=== PATIENT | female | born 1925 | race Caucasian/White ===

== ENCOUNTER 2016-12-11 15:05 | Inpatient (IN) | payer BC, MEDICARE ==
[~2016-12-11] VITALS: Ht 154.9 cm; Wt 56.2 kg
[~2016-12-11 15:05] MED LIST: ASPI-1114 PO; ATOR10TA PO; BIOT25008 PO; CA C1TAB15 PO; CALC750T4 PO; ESOM20CA PO; MELO-267 PO; MULT-1175 PO; POLY30DR BOTH EYES; SERT50TA12 PO; SUCR1TAB20 PO
--- OUTSIDE RECORDS SUMMARY | 2016-12-11 15:16 | XMS REPORT | Referral Summary ---
Author Author [facility], [facility] Organization [facility] Address Unknown Phone Unavailable Care Team Providers Care Mash Filter Cloth Changer Name Role Phone Norma Vasquez Primary Care Physician [phone] Encounter VC Date(s): 02/14/15 - 02/14/15 [facility] [address] [place] [address]- Discharge Diagnosis: Gastroesophageal reflux disease Discharge Diagnosis: Hiatal hernia Discharge Diagnosis: CAD (coronary artery disease) Discharge Diagnosis: Pulmonary nodules Discharge Disposition: 01-Home or Self Care Attending Physician: Hillary Srivastava APRN Admitting Physician: Hillary Srivastava APRN Vital Signs Most recent to 1 oldest [Reference Range]: Temperature Tympanic 36.5 degC [36.6-38.1 degC] *LOW* (02/14/15 3:43 PM) Peripheral Pulse 60 bpm Rate [60-100 bpm] (02/14/15 3:43 PM) Blood Pressure 112/58 mmHg [90-140/60-90 mmHg] (02/14/15 3:43 PM) Problem List Condition Effective Dates Status Health Status Informant 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) Unspecified 2001 Active cataract(Confirmed) Constipation Active (disorder)(Confirmed ) Generalized Active osteoarthritis (disorder)(Confirmed ) Depressive disorder, Active not elsewhere classified(Confirmed ) Dyslipidemia(Confirm Active ed) 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) Female urinary Active stress incontinence (finding)(Confirmed) Gastroesophageal Active reflux disease (disorder)(Confirmed ) Hiatal Active hernia(Confirmed) Prediabetes(Confirme Active d) Other specified iron Active deficiency anemias(Confirmed) Pulmonary Active nodules(Confirmed) Osteoporosis spec Active sites(Confirmed) 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) Anterior right Active rotator cuff tendonitis(Confirmed ) Hepatic Active steatosis(Confirmed) Anterior right Active rotator cuff strain(Confirmed)1 Traumatic Resolved arthropathy of the shoulder region (disorder)(Confirmed ) Varicella without Resolved complication(Confirm ed) Vitamin D Active deficiency(Confirmed ) 1injected 10/25/10; 12/14/10 Allergies, Adverse Reactions, Alerts No Known Allergies Medications biotin 5,000 mcg, Oral, Daily, take 1 tab, 0 Refill(s) Start Date: 10/22/14 Status: Ordered Carafate 1 g oral tablet 1 g 1 tabs, Oral, QIDACHS, # 360 tabs, 3 Refill(s), Pharmacy: [facility] # [id number], 1 tabs Oral QIDACHS Start Date: 05/09/15 Status: Ordered Citracal Regular 250 mg-200 intl units oral tablet 1 tabs, Oral, Daily, 0 Refill(s) Start Date: 10/22/14 Status: Ordered Lipitor 10 mg oral tablet 10 mg 1 tabs, Oral, Daily, # 90 tabs, 0 Refill(s), Pharmacy: [facility] # [id number], 1 tabs Oral Daily Start Date: 06/22/15 Status: Ordered multivitamin Daily, 0 Refill(s) Start Date: 02/02/15 Status: Ordered NexIUM 40 mg oral delayed release capsule 40 mg 1 caps, Oral, Daily, Run as name brand for her insurance, # 30 caps, 2 Refill(s), Pharmacy: [facility] #[id number], 1 caps Oral Daily,Instr:Run as name brand for her insurance Start Date: 05/19/15 Status: Ordered Zoloft 50 mg oral tablet 25 mg 0.5 tabs, Oral, Daily, # 90 tabs, 2 Refill(s), Pharmacy: [facility] #[id number], 0.5 tabs Oral Daily Start Date: 06/22/15 Status: Ordered Results No data available for this section Immunizations Vaccine Date Refusal Reason tetanus/diphth/pertuss (Tdap) adult/adol 05/12/13 influenza virus vaccine, inactivated 06/22/15 influenza virus vaccine, inactivated 06/30/14 influenza virus vaccine, live 07/14/12 influenza virus vaccine, live 08/19/08 pneumococcal 13-valent conjugate vaccine 06/22/15 pneumococcal 13-valent conjugate vaccine 11/05/14 pneumococcal 23-polyvalent vaccine 07/04/05 Procedures Procedure Date Related Diagnosis Body Site 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 Avoid alcohol. Eats small meals. States sitting up at least 30 minutes after meals. Ordered: Office Visit Level 4 Est 55164 2.CAD (coronary artery disease) Discussed CT findings with patient. Recommend referral to cardiology for further evaluation. Discussed with patient if she has severe pain again would recommend she return to the ER as it is unable to be differentiated whether this esophageal spasms versus heart attack Ordered: Office Visit Level 4 Est 86962 3.Pulmonary nodules Right middle lobe nodule. Recommend repeat CT scan without contrast in 6 months. Ordered: Office Visit Level 4 Est 41835 Gastroesophageal reflux disease Increase Nexium to 20 mg twice a day. Add Carafate 15 m 4 times a day 30 minutes before meals and at bedtime.Refer to surgeon for discussion regarding EGD. Ordered: Office Visit Level 4 Est 48619 Orders: sucralfate, 1 g 10 mL, Oral, QIDACHS, # 1,200 mL, 0 Refill(s), Pharmacy: [id number], 10 mL Oral QIDACHS Addendum Plan follow-up in 2 weeks. Sooner if problems arise.. by Hillary Srivastava PARTS ROOM ASSOCIATE on February 14, 2015 16:13:07 CDT
--- OUTSIDE RECORDS SUMMARY | 2016-12-11 15:16 | XMS REPORT | Referral Summary ---
Author Author [facility], [facility] Medicine Organization [facility] Address Unknown Phone Unavailable Care Team Providers Care Astronomy Professor Name Role Phone Norma Vasquez Primary Care Physician [phone] Encounter VC Date(s): 02/02/15 - 02/02/15 [facility] [address] [place] [address]- Discharge Diagnosis: Gastroesophageal reflux disease Discharge Diagnosis: Abnormal TSH Discharge Disposition: 01-Home or Self Care Attending Physician: Hillary Srivastava APRN Admitting Physician: Hillary Srivastava APRN Vital Signs Most recent to 1 oldest [Reference Range]: Temperature Tympanic 36.4 degC [36.6-38.1 degC] *LOW* (02/02/15 11:29 AM) Peripheral Pulse 72 bpm Rate [60-100 bpm] (02/02/15 11:29 AM) Blood Pressure 120/66 mmHg [90-140/60-90 mmHg] (02/02/15 11:29 AM) Problem List Condition Effective Dates Status Health [...] QIDACHS, # 360 tabs, 3 Refill(s), Pharmacy: [facility] # [id number], 1 tabs Oral QIDACHS Start Date: 05/09/15 Status: Ordered Citracal Regular 250 mg-200 intl units oral tablet 1 tabs, Oral, Daily, 0 Refill(s) Start Date: 10/22/14 Status: Ordered Lipitor 10 mg oral tablet 10 mg 1 tabs, Oral, Daily, # 90 tabs, 0 Refill(s), Pharmacy: [facility] # [id number], 1 tabs Oral Daily Start Date: 06/22/15 Status: Ordered multivitamin Daily, 0 Refill(s) Start Date: 02/02/15 Status: Ordered NexIUM 40 mg oral delayed release capsule 40 mg 1 caps, Oral, Daily, Run as name brand for her insurance, # 30 caps, 2 Refill(s), Pharmacy: [facility] #[id number], 1 caps Oral Daily,Instr:Run as name brand for her insurance Start Date: 05/19/15 Status: Ordered Zoloft 50 mg oral tablet 25 mg 0.5 tabs, Oral, Daily, # 90 tabs, 2 Refill(s), Pharmacy: [facility] #[id number], 0.5 tabs Oral Daily Start Date: 06/22/15 Status: Ordered Results Chemistry Most recent to 1 oldest [Reference Range]: TSH with Reflex Free 1.27 T4 [0.35-4.94] (02/02/15 12:05 PM) Immunizations Vaccine Date Refusal Reason tetanus/diphth/pertuss (Tdap) [...] and Plan Extracted from: Title: Office Visit Note-ER f/u Author: Hillary Srivastava CHICLE GRINDER FEEDER Date: Assessment/Plan 1.Abnormal TSH Mahamed TSH. No S/s of hypo/hyper thyroidism. Ordered: Office Visit Level 3 Est 94763 TSH with Reflex Free T4 Gastroesophageal reflux disease Cont Nexium. EC baby ASA dly. Ordered: Office Visit Level 3 Est 12749
--- OUTSIDE RECORDS SUMMARY | 2016-12-11 15:16 | XMS REPORT | Continuity of Care Document ---
Author Author Makayla Comer [facility] Address [address] [place] [address] Phone Care Team Providers Care Automobile Body Worker Name Role Phone Layo Mcqueen PP Unavailable Payers Payer name Insurance type Covered democrat ID Authorization(s) Unknown Problems Condition Effective Dates (start - stop) Clinical Status Unspecified arthropathy involving shoulder region - *Symptomatic Fracture of fifth metatarsal bone - *Acute GERD - *Chronic Depression - *Chronic Osteoporosis - *Chronic GERD - Chronic Depression - Chronic Osteoporosis - Chronic Routine Medical Exam - Memory loss - *Worse Depression - *Chronic GERD - *Chronic Osteoporosis - *Chronic Osteoarthritis, Generalized - *Chronic Cramp of limb - Episodic Sciatica - *Acute Generalized osteoarthrosis, involving multiple sit - *Chronic Osteoarthrosis, unspecified whether generalized or localized, involving other specified sites - *Chronic GERD (gastroesophageal reflux disease) - *Chronic Leg cramps - Episodic Osteoporosis - *Chronic Depression - *Chronic Other specified iron deficiency anemias - *Controlled Osteoarthrosis, unspecified whether generalized or localized, involving other specified sites - *Controlled Other and unspecified hyperlipidemia - *Chronic Vitamin d deficiency - *Controlled Fracture of metatarsal bone(s), closed - *Worse Other and unspecified hyperlipidemia - *Chronic GERD - *Chronic Depression - *Chronic Osteoporosis - *Chronic Anemia - *Chronic Osteoarthritis, Generalized - *Chronic Osteoarthritis, Generalized - Chronic VARICELLA UNCOMPLICATED - IRON DEFIC ANEMIA NEC - 311 - DEPRESSIVE DISORDER NEC - CATARACT NOS - ESOPHAGEAL REFLUX - CONSTIPATION NOS - FEM STRESS INCONTINENCE - OSTEOARTHRO NOS-OTH SITE - OSTEOPOROSIS NOS - Urinary Tract Infection - *Acute Fracture of metatarsal bone(s), closed - Improved Unspecified ptosis of eyelid - *Chronic Pre-operative examination, unspecified - *Routine NEED FOR PROPHYLACTIC VACCINATION WITH COMBINED [id number] ( DTP) (DTAP) VACCINE - Unspecified arthropathy involving shoulder region - *Symptomatic Family History Family Member Diagnosis Age At Onset Status Sister (Unknown) Diabetes Yes Mother (Unknown) old age Yes Father (Unknown) Premature CAD Yes Social History Social History Element Description Quantity alcohol Allergies, Adverse Reactions, Alerts Substance Reaction Severity Status Unknown Medications Medication Instructions Dosage Effective Dates (start - stop) Status Citracal Regular 250 mg-200 unit tablet Take one daily - Active Take one daily - Active biotin-silicon [id number] 5,000 mcg-100 mg-50 mg tablet Take one daily - Active aspirin 81 mg chewable tablet chew 1 tablet (81MG) by oral route every day 81 MG - Active magnesium 250 mg tablet Take one daily - Active Zoloft 50 mg tablet Take 0.5 tablet by mouth at bedtime. - Active Mobic 15 mg tablet Take 1 tablet by mouth every day. - Active Reclast 5 mg/100 mL intravenous solution inject 5 Milligram by Intravenous route every year Last given 12/04/2013 0 - Active Nexium 20 mg capsule,delayed release Take 1 tablet by mouth every day. Nov - Active Immunizations Vaccine Date Status Comments Tdap (Boostrix r) completed flu (split) (3 yrs or older) completed - Completed reason: previously given pneumo (2 yrs or older) (PPV23) completed - Completed reason: previously given flu (split) (3 yrs or older) completed - Completed reason: previously given Results Test Name Date and Time Measure Units Reference Range Abnormal Flag Comments Unknown Vital Signs Date / Time: Height Weight Pulse Rate Blood Pressure Temperature /15:46:00 60.75 in 132.00 lbs 97.9 F Procedures Procedure Date Unknown Encounters Encounter Location Date Patient Visit [facility] Patient Visit [facility] Patient Visit [facility] Patient Visit [facility] Patient Visit [facility] Patient Visit [facility] Patient Visit [facility] Patient Visit [facility] Patient Visit [facility] Patient Visit [facility] Patient Visit [facility] Patient Visit [facility] Patient Visit [facility] Patient Visit [facility] Patient Visit [facility] Patient Visit [facility] Advance Directives Directive Effective Date Unknown
--- OUTSIDE RECORDS SUMMARY | 2016-12-11 15:16 | XMS REPORT | Referral Summary ---
Author Author [facility], [facility] Organization [facility] Address Unknown Phone Unavailable Care Team Providers Care Ingredient Scaler Helper Name Role Phone Manuelito Alexander Primary Care Physician [phone] Encounter VC Date(s): 12/28/15 - 12/28/15 [facility] [address] [place] [address]- Discharge Diagnosis: Gastroesophageal reflux disease Discharge Diagnosis: Dyslipidemia Discharge Diagnosis: Depressive disorder, not elsewhere classified Discharge Diagnosis: Generalized osteoarthritis (disorder) Discharge Disposition: 01-Home or Self Care Attending Physician: John Alexander MD Admitting Physician: John Alexander MD Vital Signs Most recent to 1 oldest [Reference Range]: Temperature Tympanic 36.5 degC [36.6-38.1 degC] *LOW* (12/28/15 1:37 PM) Peripheral Pulse 64 bpm Rate [60-100 bpm] (12/28/15 1:37 PM) Respiratory Rate 18 br/min [14-20 br/min] (12/28/15 1:37 PM) Blood Pressure 134/68 mmHg [90-140/60-90 mmHg] (12/28/15 1:37 PM) Problem List Condition Effective Dates Status Health Status Informant 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) Unspecified 2001 Active cataract(Confirmed) Constipation Resolved (disorder)(Confirmed ) 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) Female urinary Active stress incontinence (finding)(Confirmed) Gastroesophageal Active reflux disease (disorder)(Confirmed ) Hiatal Active hernia(Confirmed) Dyslipidemia(Confirm Active ed) Prediabetes(Confirme Active d) Other specified iron Active deficiency anemias(Confirmed) Pulmonary Active nodules(Confirmed) Depressive disorder, Active not elsewhere classified(Confirmed ) 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 CT due 08/2016 2injected 10/25/10; 12/14/10 Allergies, Adverse Reactions, Alerts No Known Allergies Medications biotin 5,000 mcg, Oral, Daily, take 1 tab, 0 Refill(s) Start Date: 10/22/14 Status: Ordered Carafate 1 g oral tablet 1 g 1 tabs, Oral, BID, # 180 tabs, 3 Refill(s), Pharmacy: [facility] # [id number], 1 tabs Oral BID Start Date: 10/10/15 Status: Ordered Lipitor 10 mg oral tablet 10 mg 1 tabs, Oral, Bedtime (once a day), # 90 tabs, 3 Refill(s), Pharmacy: [facility] #[id number], 1 tabs Oral Bedtime (once a day) Start Date: 10/10/15 Status: Ordered Mobic 15 mg oral tablet 15 mg 1 tabs, Oral, Daily, # 90 tabs, 3 Refill(s), Pharmacy: [facility] # [id number], 1 tabs Oral Daily Start Date: 10/10/15 Status: Ordered NexIUM 20 mg oral delayed release capsule 20 mg 1 caps, Oral, Daily, # 90 caps, 0 Refill(s), other reason (Rx) Start Date: 09/29/15 Status: Ordered Tylenol Extra Strength 500 mg, Oral, q6hr, as needed for pain, 0 Refill(s) Start Date: 09/29/15 Status: Ordered Zoloft 50 mg oral tablet 25 mg 0.5 tabs, Oral, Daily, X 90 days, # 45 tabs, 3 Refill(s), Pharmacy: [facility] #[id number], 0.5 tabs Oral Daily,x90 days Start Date: 10/10/15 Stop Date: 10/04/16 Status: Ordered Results No data available for this section Immunizations Vaccine Date Refusal Reason tetanus/diphth/pertuss (Tdap) adult/adol 05/12/13 influenza virus vaccine, inactivated 06/22/15 influenza virus vaccine, inactivated 06/30/14 influenza virus vaccine, live 07/14/12 influenza virus vaccine, live 08/19/08 pneumococcal 13-valent conjugate vaccine 06/22/15 pneumococcal 13-valent conjugate vaccine 11/05/14 pneumococcal 23-polyvalent vaccine 07/04/05 Procedures Procedure Date Related Diagnosis Body Site DEXA - Dual energy X-ray photon 11/10/14 absorptiometry 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 No desire to changeat this time. Six-month follow-up encouraged. Ordered: Office Visit Level 4 Est 45260 Dyslipidemia Recent laboratory studies reviewed cholesterol levels are reasonable. Liver and kidney function are stable. No change in current treatment plan recommended. Six-month follow-up. Ordered: Office Visit Level 4 Est 56806 Gastroesophageal reflux disease Chronic stable no change in current treatment recommended. Ordered: Office Visit Level 4 Est 66912 Generalized osteoarthritis (disorder) Chronic and stable no change in current treatment recommended. Ordered: Office Visit Level 4 Est 97512 She's planning on following up with Hillary. I encouraged her tofollow through with that plan. I suggested an every six-month follow-up will be reasonable. Certainly if she needs to be seen sooner she should callthe office and let us know.
--- OUTSIDE RECORDS SUMMARY | 2016-12-11 15:16 | XMS REPORT | Referral Summary ---
Author Author [facility], [facility] Organization [facility] Address Unknown Phone Unavailable Care Team Providers Care Suit Maker Name Role Phone Manuelito Alexander Primary Care Physician [phone] Encounter [facility] [id number] Date(s): 09/29/15 - 09/29/15 [facility] [address] [place] [address] [place] Discharge Diagnosis: Gastroesophageal reflux disease Discharge Diagnosis: Other specified iron deficiency anemias Discharge Diagnosis: Vitamin D deficiency Discharge Diagnosis: Hiatal hernia Discharge Diagnosis: Pulmonary nodules 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 Discharge Diagnosis: Dyslipidemia Discharge Diagnosis: Hepatic steatosis Discharge Diagnosis: Prediabetes Discharge Disposition: 01-Home or Self Care Attending Physician: Hillary Srivastava APRN Admitting Physician: Hillary Srivastava APRN Vital Signs Most recent to 1 oldest [Reference Range]: Temperature Tympanic 36.3 degC [36.6-38.1 degC] *LOW* (09/29/15 10:32 AM) Peripheral Pulse 76 bpm Rate [60-100 bpm] (09/29/15 10:32 AM) Blood Pressure 128/68 mmHg [90-140/60-90 mmHg] (09/29/15 10:32 AM) Problem List Condition Effective Dates Status [...] iron Active deficiency anemias(Confirmed) Pulmonary Active nodules(Confirmed) 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) Anterior right Active rotator cuff tendonitis(Confirmed ) Hepatic Active steatosis(Confirmed) Anterior right Active rotator cuff strain(Confirmed)1 Traumatic Resolved arthropathy of the shoulder region (disorder)(Confirmed ) Varicella without Resolved complication(Confirm ed) Vitamin D Active deficiency(Confirmed ) 1injected 10/25/10; 12/14/10 Allergies, Adverse Reactions, Alerts No Known Allergies Medications Aspir 81 81 mg, Oral, Daily, 0 Refill(s) Start Date: 09/29/15 Status: Ordered biotin 5,000 mcg, Oral, Daily, take 1 tab, 0 Refill(s) Start Date: 10/22/14 Status: Ordered calcium citrate 500 mg, Oral, Daily, 0 Refill(s) Start Date: 09/29/15 Status: Ordered Carafate 1 g oral tablet 1 g 1 tabs, Oral, BID, # 360 tabs, 3 Refill(s), Pharmacy: [facility] # [id number], 1 tabs Oral QIDACHS Start Date: 05/09/15 Status: Ordered Lipitor 10 mg oral tablet See Instructions, TAKE ONE TABLET BY MOUTH DAILY, # 90 tabs, eRx: [facility] #[id number], TAKE ONE TABLET BY MOUTH DAILY Start Date: 09/16/15 Status: Ordered Mobic 15 mg oral tablet See Instructions, TAKE ONE TABLET BY MOUTH EVERY DAY, # 90 tabs, 3 Refill(s), eRx: [facility] #[id number], TAKE ONE TABLET BY MOUTH EVERY DAY Start Date: 09/14/15 Status: Ordered Multiple Vitamins oral tablet, chewable 1 tabs, Chewed, Daily, # 100 tabs, 0 Refill(s) Start Date: 09/29/15 Status: Ordered NexIUM 20 mg oral delayed release capsule 20 mg 1 caps, Oral, Daily, # 90 caps, 0 Refill(s), other reason (Rx) Start Date: 09/29/15 Status: Ordered Tylenol Extra Strength 500 mg, Oral, q6hr, as needed for pain, 0 Refill(s) Start Date: 09/29/15 Status: Ordered Zoloft 50 mg oral tablet 25 mg 0.5 tabs, Oral, Daily, # 90 tabs, 2 Refill(s), Pharmacy: [facility] #[id number], 0.5 tabs Oral Daily Start Date: 06/22/15 [...] and Plan Extracted from: Title: Office Visit Note-CDM Author: Hillary Srivastava ICING MAKER Date: Assessment/Plan Degenerative joint disease involving multiple joints Continue meloxicam if needed. When she trysupplementing with Tylenol up to 3000 mg per day. Dyslipidemia Well controlled with theLipitor. Continue same. Plan to recheck lipids and chemistry in 3 months. CDM report card completed and reviewed with patient. Last labs reviewed with patient. Recommendations discussed. Copy provided. Follow-up in 3 months. Discussed PCP changes. She will continue to follow with me. We'll change PCP to Dr. Alexander. Ordered: Comprehensive Metabolic Panel Lipid Panel Office Visit Level 4 Est 93739 Gastroesophageal reflux disease Continue Nexium. Try decreasing Carafate to twice a day if possible. Ordered: Office Visit Level 4 Est 39641 Hepatic steatosis Continue statin. Ordered: Office Visit Level 4 Est 80260 Hiatal hernia Continue symptomatic care. Ordered: Office Visit Level 4 Est 86622 Other specified iron deficiency anemias Recheck CBC in 3 months. Ordered: CBC w/ Differential Prediabetes Recheck hemoglobin A1c in 3 months. Continue healthy eating and activity. Ordered: Albumin/Creatinine Ratio, Urine Hemoglobin A1c Pulmonary nodules CT without contrast schedule. We'll notify patient of results and any further interventions needed. Vitamin D deficiency Continue supplementation. Vitamin D level in 3 months. Ordered: Vitamin D 25 Hydroxy Level Orders: esomeprazole, 20 mg 1 caps, Oral, Daily, # 90 caps, 0 Refill(s), other reason (Rx) sucralfate, 1 g 1 tabs, Oral, BID, # 360 tabs, 3 Refill(s), Pharmacy: [facility] #[id number], [address] Thorax w/o Contrast
--- OUTSIDE RECORDS SUMMARY | 2016-12-11 15:16 | XMS REPORT | Continuity of Care Document ---
Author Author [facility] Organization [facility] Address Unknown Phone Unavailable Support Name Relationship Address Phone ANUM VEGA MD Caregiver [address] [place] [phone] EDDIE WITT MD Caregiver [address] [place] [address] SHAWN MADRIGAL Next Of Kin [address] [place], [place] [id number] Insurance Providers Payer Name Policy Number Subscriber Name Relationship Medicare [id number] Lori Salomon 20 Self Blue Cross Select Plan 65 [id number] Lori Salomon 20 Self Advance Directives Directive Response Recorded Date/Time Advanced Directives Type Living Will DPOA for Healthcare 01/03/15 2:00pm Problems Medical Problems Problem Onset Date Status GERD (gastroesophageal reflux disease) Unknown Active Medications Medication Dose Route Sig Days/Qty Instructions Order Date Discontinued Date Status Ca Citrate/Mgox/Vit D3/B6/Min 1 Tab PO DAILY 05/12/13 Active Esomeprazole Mag Trihydrate 20 Mg PO DAILY 05/12/13 Active Sertraline HCl 0.5 Tab PO BEDTIME 01/03/15 Active Atorvastatin Calcium 1 Tab PO BEDTIME 01/03/15 Active Esomeprazole Mag Trihydrate 1 Tab PO DAILY 01/03/15 Active Biotin Unknown Dose PO DAILY 01/03/15 Active Ranitidine HCl 1 Tab PO EVERY 12 HOURS PRN ACID REFLUX 10 Days Active Sucralfate 1 G PO BEFORE MEALS AND AT BEDTIME 10 Days Take 1 tablet, by mouth, 4 times a day (Before EACH meal and 01/03/15 Active Social History Social History Problem Response Recorded Date/Time Chewing Tobacco Status No 05/13/2013 7:38am Hx Substance Use No 01/03/2015 2:05pm Hx Alcohol Use Y 1-2X/WK PER H&P 01/03/2015 2:05pm Query Response Start Date Stop Date Smoking Status Never smoker Hospital Discharge Instructions No hospital discharge instructions. Plan of Care No plan of care. Functional Status Query Response Date Recorded Physical Hygiene Self January 03, 2015 2:05pm Disabilities None January 03, 2015 2:05pm Devices Used None January 03, 2015 2:05pm Dressing Self January 03, 2015 2:05pm Ambulation Self January 03, 2015 2:05pm Diet Self January 03, 2015 2:05pm Mental Status Alert Oriented January 03, 2015 3:08pm Disabilities None January 03, 2015 2:05pm Devices Used None January 03, 2015 2:05pm Physical Hygiene Self January 03, 2015 2:05pm Dressing Self January 03, 2015 2:05pm Ambulation Self January 03, 2015 2:05pm Diet Self January 03, 2015 2:05pm Allergies, Adverse Reactions, Alerts Allergen Type Severity Reaction Status Last Updated Oxycodone Adverse Reaction Unknown STRANGE DREAMS Active 01/03/15 Immunizations Name Given Type Hx Influenza Vaccination Y FALL 2011 Historical Hx Pneumococcal Vaccination Y UNKNOWN Historical Hx Influenza Vaccination Y FALL 2011 Historical Vital Signs Acute Vital Signs Vital Response Date/Time Temperature (Fahrenheit) 97.4 deg F (96.8 - 99.1) Temperature (Calculated Celsius) 36.33942 degrees C (36.0 - 37.3) Pulse Rate (adult) 59 bpm (60 - 100) Respiratory Rate 22 breaths/min (10 - 20) O2 Sat by Pulse Oximetry 97 % (90 - 100) Blood Pressure 152/76 mm Hg Height 5 ft 3 in Weight 154 lb Body Mass Index 27.0 kg/m^2 Results Test Source Date Result Interp. Ref. Range Comments Thyroid Stimulating Hormone (TSH) January 03, 2015 2:05pm 0.08 MIU/L L 0.47-4.68 EP-Czr-L-Type Natriuretic Peptide January 03, 2015 2:05pm 462 PG/ML H 0- 175 Rule in cut points: <50 years old=450; 50-75 years old=900; >75 years old=1800; When utilizing ProBNP rule-in cut points, adjustment for impaired renal function is typically not required. Magnesium Level January 03, 2015 2:05pm 2.3 MG/DL N 1.6-2.3 Activated Partial Thromboplast Time January 03, 2015 2:05pm 28.0 SEC N 24- 36 Alanine Aminotransferase (ALT/SGPT) January 03, 2015 2:05pm 18 U/L N 9-52 Albumin January 03, 2015 2:05pm 4.4 G/DL N 3.5-5.0 Albumin/Globulin Ratio January 03, 2015 2:05pm 1.5 RATIO N 1.1-2.2 Alkaline Phosphatase January 03, 2015 2:05pm 64 U/L N 38-126 Anion Gap January 03, 2015 2:05pm 11 MEQ/L N 5-15 Aspartate Amino Transf (AST/SGOT) January 03, 2015 2:05pm 24 U/L N 14-36 BUN/Creatinine Ratio January 03, 2015 2:05pm 16 RATIO N 6-26 Basophils # (Auto) January 03, 2015 2:05pm 0.0 T/MM3 N 0-0.2 Basophils (%) (Auto) January 03, 2015 2:05pm 0.0 % N 0-2 Blood Urea Nitrogen January 03, 2015 2:05pm 14.0 MG/DL N 7-17 Calcium Level January 03, 2015 2:05pm 9.8 MG/DL N 8.4-10.2 Calculated Osmolality January 03, 2015 2:05pm 275 MOSM/KG N 261-280 Carbon Dioxide Level January 03, 2015 2:05pm 28 MEQ/L N 22-30 Chemistry Specimen Hemolysis January 03, 2015 2:05pm < 15 0-25 0-25: No Hemolysis.26-70: Slight Hemolysis - can falsely elevate K and Urine Protein. 71-285: Moderate Hemolysis - can falsely elevate K, Troponin I, CA 19-9, PTH, CSF GLucose, and Urine Protein, and can falsely decrease Phenytoin. 286-999: Gross Hemolysis - can falsely elevate K, Troponin I, CA 19-9, PTH, CSF Glucose, and Urine Protine, and can falsely decrease Phenytoin. Recommend specimen recollection. Chloride Level January 03, 2015 2:05pm 103 MEQ/L N 98-107 Conjugated Bilirubin April 15, 2012 7:55pm 0.00 MG/DL N 0.00-0.30 Creatine Kinase MB January 29, 2011 4:39pm 3.7 NG/ML H 0-3.4 CALL TO Creatinine January 03, 2015 2:05pm 0.9 MG/DL N 0.7-1.2 Eosinophils # (Auto) January 03, 2015 2:05pm 0.0 T/MM3 N 0-0.5 Eosinophils (%) (Auto) January 03, 2015 2:05pm 0.0 % N 0-4 Globulin January 03, 2015 2:05pm 3.0 G/DL N 2.4-3.6 Glomerular Filtration Rate Calc January 03, 2015 2:05pm 59 - Glucose Level January 03, 2015 2:05pm 122 MG/DL H 65-110 Hematocrit January 03, 2015 2:05pm 39.3 % N 36-46 Hemoglobin January 03, 2015 2:05pm 13.0 GM/DL N 12-16 Icterus Index January 03, 2015 2:05pm < 2 0-7 Immature Granulocyte # (Auto) January 03, 2015 2:05pm 0.00 T/MM3 N 0.00- 0.03 Immature Granulocyte % (Auto) January 03, 2015 2:05pm 0.0 % N 0.0-0.5 Lab Scanned Report January 29, 2011 10:00pm LAB TEST FORM REQUEST [id number] - Lymphocytes # (Auto) January 03, 2015 2:05pm 2.3 T/MM3 N 1-4.8 Lymphocytes (%) (Auto) January 03, 2015 2:05pm 35.4 % N 23-45 Mean Corpuscular Hemoglobin January 03, 2015 2:05pm 30.2 UUG N 26-34 Mean Corpuscular Hemoglobin Concent January 03, 2015 2:05pm 33.1 GM/DL N 31-37 Mean Corpuscular Volume January 03, 2015 2:05pm 91.4 UM3 N 80-100 Mean Platelet Volume January 03, 2015 2:05pm 9.8 UM3 N 9.4-12.4 Monocytes # (Auto) January 03, 2015 2:05pm 0.4 T/MM3 N 0-0.8 Monocytes (%) (Auto) January 03, 2015 2:05pm 6.7 % N 0-9.0 Neutrophils # (Auto) January 03, 2015 2:05pm 3.8 T/MM3 N 1.8-7.7 Neutrophils (%) (Auto) January 03, 2015 2:05pm 57.9 % N 33-66 Platelet Count January 03, 2015 2:05pm 174 T/MM3 N 130-400 Potassium Level January 03, 2015 2:05pm 4.1 MEQ/L N 3.6-5 Prothromb Time International Ratio January 03, 2015 2:05pm 0.95 N 0.81- 1.09 THERAPUTIC RANGE=2.00-3.00 FOR ANTI-THROMBOSIS THERAPUTIC RANGE=2.50- 3.50 FOR IMPLANTED VALVE RDW Standard Deviation January 03, 2015 2:05pm 45.6 FL N 36.9-50.2 Red Blood Count January 03, 2015 2:05pm 4.30 M/MM3 N 4.00-5.20 Sodium Level January 03, 2015 2:05pm 142 MEQ/L N 134-144 Total Bilirubin January 03, 2015 2:05pm 0.40 MG/DL N 0.20-1.30 Total Protein January 03, 2015 2:05pm 7.4 G/DL N 6.3-8.2 Troponin I January 03, 2015 2:05pm < 0.012 ng/ml 0-0.12 Turbidity January 03, 2015 2:05pm < 20 0-20 Unconjugated Bilirubin April 15, 2012 7:55pm 0.00 MG/DL N 0.00-1.10 White Blood Count January 03, 2015 2:05pm 6.5 T/MM3 N 4.5-11.0 Name: LORI SALOMON Unit #: [id number] : [id number] Sex: F Loc / Svc: ED DOS: 01/03/15 Signed Report #: [id number] DIAGNOSTIC IMAGING REPORT TYPE OF EXAM: CHEST 1 VIEW Dictated By: ROCIO BENTLEY MD Indication: ITS.REASON: chest pain CHEST 1 VIEW: Comparison: April 15, 2012 Findings: Lungs are mildly hypoinflated. No pneumothorax or focal airspace consolidation. The heart size and mediastinal contours are stable. Large hiatal hernia with partially intrathoracic stomach. Pulmonary vascularity appears normal. Suture anchors in the right humeral head with degenerative changes in the glenohumeral joint. Impression: No acute cardiopulmonary disease. . Procedures No known history of procedures. Encounters Encounter Location Date/Time Departed Emergency Room [facility] 01/03/15 1:57pm Recent Diagnosis
--- OUTSIDE RECORDS SUMMARY | 2016-12-11 15:16 | XMS REPORT | Continuity of Care Document ---
Author Author Hillary Knapp [facility] Address [address] [place] [address] Via [facility] [place] [address] Phone Care Team Providers Care Cap And Hat Production Supervisor Name Role Phone Layo Mcqueen PP Unavailable Payers Payer name Insurance type Covered green party ID Authorization(s) Unknown Problems Condition Effective Dates (start - stop) Clinical Status Routine Medical Exam - Memory loss - *Worse Depression - *Chronic GERD - *Chronic Osteoporosis - *Chronic Osteoarthritis, Generalized - *Chronic Cramp of limb - Episodic Fracture of fifth metatarsal bone - *Acute GERD - *Chronic Depression - *Chronic Osteoporosis - *Chronic GERD - Chronic Depression - Chronic Osteoporosis - Chronic Sciatica - *Acute Generalized osteoarthrosis, involving multiple [...] - *Chronic Vitamin d deficiency - *Controlled Unspecified arthropathy involving shoulder region - *Symptomatic Fracture of metatarsal bone(s), closed - *Worse [...] *Routine NEED FOR PROPHYLACTIC VACCINATION WITH COMBINED [id number] ( DTP) (DTAP) VACCINE - Family History Family Member Diagnosis Age At Onset Status Sister (Unknown) Diabetes Yes Mother (Unknown) old age Yes Father (Unknown) Premature CAD Yes Social History Social History Element Description Quantity Unknown Allergies, Adverse Reactions, Alerts Substance Reaction Severity Status Unknown Medications Medication Instructions Dosage Effective Dates (start - stop) Status Mobic 15 mg tablet Take 1 tablet by mouth every day. - Active Citracal Regular 250 mg-200 unit tablet Take one daily - Active Take one daily - Active biotin-silicon gnzxzen-L-gmqqzury 5,000 mcg-100 mg-50 mg tablet Take one daily - Active aspirin 81 mg chewable tablet chew 1 tablet (81MG) by oral route every day 81 MG - Active magnesium 250 mg tablet Take one daily - Active Zoloft 50 mg tablet Take 0.5 tablet by mouth at bedtime. - Active Reclast 5 mg/100 mL intravenous [...] Height Weight Pulse Rate Blood Pressure Temperature /10:42:00 60.75 in 129.80 lbs 76 /min 114/58 mm[Hg] 97.9 F Procedures Procedure Date VISUAL SCREENING TEST, BILAT Encounters Encounter Location Date Patient [facility] Patient [facility] Patient [facility] Patient Visit [facility] Patient [facility] Patient [facility] Patient Visit [facility] Patient Visit [facility] Patient [facility] Patient Visit [facility] Patient Visit [facility] Advance Directives Directive Effective Date Do Not Resuscitate 09/30/2013 Intubation 09/30/2013 Antibiotics 09/30/2013
--- OUTSIDE RECORDS SUMMARY | 2016-12-11 15:16 | XMS REPORT | Referral Summary ---
Author Author [facility] [place], [facility] Organization [facility] Address Unknown Phone Unavailable Care Team Providers Care Orthopedic Nurse Practitioner Name Role Phone Manuelito Alexander Primary Care Physician [phone] Encounter Date(s): 05/09/15 - 05/09/15 [facility] [place] [address] [place] [address] [place] Discharge Diagnosis: Hiatal hernia Discharge Diagnosis: Gastroesophageal reflux disease Discharge Diagnosis: Prediabetes Discharge Diagnosis: Pulmonary nodules Discharge Diagnosis: Osteoporosis Discharge Diagnosis: Depressive disorder, not elsewhere classified Discharge Diagnosis: Basal cell carcinoma Discharge Diagnosis: Hepatic steatosis Discharge Diagnosis: Dyslipidemia Discharge Disposition: 01-Home or Self Care Attending Physician: Hillary Srivastava APRN Admitting Physician: Hillary Srivastava APRN Vital Signs Most recent to 1 oldest [Reference Range]: Temperature Tympanic 37.2 degC [36.6-38.1 degC] (05/09/15 1:08 PM) Peripheral Pulse 72 bpm Rate [60-100 bpm] (05/09/15 1:08 PM) Blood Pressure 102/58 mmHg [90-140/60-90 mmHg] (05/09/15 1:08 PM) Problem List Condition Effective Dates Status [...] Adverse Reactions, Alerts No Known Allergies Medications Bactrim DS 800 mg-160 mg oral tablet 1 tabs, Oral, BID, X 7 days, # 14 tabs, 0 Refill(s), Pharmacy: [facility] #[id number] Start Date: 11/14/15 Stop Date: 11/21/15 Status: Ordered biotin 5,000 mcg, Oral, Daily, take 1 tab, 0 Refill(s) Start Date: 10/22/14 Status: Ordered calcium citrate 500 mg, Oral, Daily, 0 Refill(s) Start Date: 09/29/15 Status: Ordered Carafate 1 g oral tablet 1 g 1 tabs, Oral, BID, # 180 tabs, 3 Refill(s), Pharmacy: [facility] # [id number], 1 tabs Oral BID Start Date: 10/10/15 Status: Ordered Lipitor 10 mg oral tablet 10 mg 1 tabs, Oral, Bedtime (once a day), # 90 tabs, 3 Refill(s), Pharmacy: [facility] #[id number], 1 tabs Oral Bedtime (once a day) Start Date: 10/10/15 Status: Ordered Mobic 15 mg oral tablet 15 mg 1 tabs, Oral, Daily, # 90 tabs, 3 Refill(s), Pharmacy: [facility] # [id number], 1 tabs Oral Daily Start Date: 10/10/15 Status: Ordered Multiple Vitamins oral tablet, chewable [...] days, # 45 tabs, 3 Refill(s), Pharmacy: [facility] #[id number], 0.5 tabs Oral Daily,x90 days Start Date: [...] and Plan Extracted from: Title: Office Visit Note-GERD Author: Hillary Srivastava APRN Date: Assessment/Plan 1.Basal cell carcinoma Cont to follow with Dr. Hoyos. Ordered: Office Visit Level 4 Est 14115 2.Hepatic steatosis Continue on statin. We'll monitor CMP and lipids this next week fasting. Ordered: Office Visit Level 4 Est 81370 Depressive disorder, not elsewhere classified Continue Zoloft. Ordered: Office Visit Level 4 Est 96829 Dyslipidemia Ordered: Office Visit Level 4 Est 22593 Gastroesophageal reflux disease Strongly encourage her to consider EGD for further evaluation of her GERD and hiatal hernia. She is really not interested in that at this time. We'll check an H. pylori. Encourage her to avoid alcohol if that is a trigger for her symptoms. Continue Nexium twice a day. Carafate 3 times per day. Consider adding H2 tremayne it becomes symptomatic again. Patient is planning on going to the [facility] for approximately a month. Requested she check back with me when she returns. Ordered: H. pylori ab, IgG, IgM, and IgA Office Visit Level 4 Est 95377 Hiatal hernia Ordered: Office Visit Level 4 Est 67625 Osteoporosis DEXA scan in 2 years. Reclast holiday. Ordered: Office Visit Level 4 Est 38897 Prediabetes Plan lab in 6 months. Ordered: Office Visit Level 4 Est [address] scan in July. Ordered: Office Visit Level 4 Est 77657 Orders: esomeprazole, 20 mg 1 caps, Oral, BID, # 180 Each, 3 Refill(s), Pharmacy: [facility] #[id number], 1 caps Oral BID sertraline, 25 mg 0.5 tabs, Oral, Daily, # 90 tabs, 3 Refill(s), Pharmacy: [facility] #[id number], 0.5 tabs Oral Daily sucralfate, 1 g 1 tabs, Oral, QIDACHS, # 360 tabs, 3 Refill(s), Pharmacy: [facility] #[id number], 1 tabs Oral QIDACHS
--- OUTSIDE RECORDS SUMMARY | 2016-12-11 15:16 | XMS REPORT ---
Author Author Neda Cruz Organization [employer] Address Unknown Phone Unavailable Care Team Providers Care Security Services Specialist Name Role Phone Neda Cruz CP Unavailable Allergies No Known Allergies Problems No Known Problems Medications No Known Medications Results No Known Results Summary Purpose [employer] Submission
--- OUTSIDE RECORDS SUMMARY | 2016-12-11 15:16 | XMS REPORT | Referral Summary ---
Author Author [facility] [place], [facility] Organization [facility] Address Unknown Phone Unavailable Care Team Providers Care Quiller Operator Name Role Phone Manuelito Alexander Primary Care Physician [phone] Encounter VC Date(s): 05/16/15 - 05/16/15 [facility] [place] [address] [place] [address]- Discharge Diagnosis: Bronchitis Discharge Diagnosis: Gastroesophageal reflux disease Discharge Disposition: 01-Home or Self Care Attending Physician: Hillary Srivastava APRN Admitting Physician: Hillary Srivastava APRN Vital Signs Most recent to 1 oldest [Reference Range]: Temperature Tympanic 36.1 degC [36.6-38.1 degC] *LOW* (05/16/15 3:06 PM) Peripheral Pulse 64 bpm Rate [60-100 bpm] (05/16/15 3:06 PM) Respiratory Rate 16 br/min [14-20 br/min] (05/16/15 3:06 PM) Blood Pressure 120/56 mmHg [90-140/60-90 mmHg] (05/16/15 3:06 PM) Problem List Condition Effective Dates Status [...] BID, # 180 tabs, 3 Refill(s), Pharmacy: [facility] # [id number], 1 tabs Oral BID Start Date: 10/10/15 Status: Ordered Lipitor 10 mg oral tablet 10 mg 1 tabs, Oral, Bedtime (once a day), # 90 tabs, 3 Refill(s), Pharmacy: [facility] #[id number], 1 tabs Oral Bedtime (once a day) Start Date: 10/10/15 Status: Ordered Mobic 15 mg oral tablet 15 mg 1 tabs, Oral, Daily, # 90 tabs, 3 Refill(s), Pharmacy: [facility] # [id number], 1 tabs Oral Daily Start Date: 10/10/15 [...] days, # 45 tabs, 3 Refill(s), Pharmacy: [facility] #[id number], 0.5 tabs Oral Daily,x90 days Start Date: [...] and Plan Extracted from: Title: Office Visit Note-brochitis Author: Hillary Srivastava LAMP W[place]ER Date: Assessment/Plan 1.Bronchitis Zithromax 2 tablets today then one tablet daily for the next 4 days. Recommend qyik-cws-tvecfte Mucinex or Delsym for cough expectorant/ suppressant. Continue other medications without change. Extra rest/extra fluids. Chest x-ray today to rule out pneumonia. We'll call her with those results. OV if not improving. Ordered: Office Visit Level 4 Est 35592 Orders: azithromycin, 1 packets, Oral, Daily, as directed on package labeling , X 5 days, # 6 tabs, 0 Refill(s), Pharmacy: [facility] #[id number], 1 packets Oral Daily,x5 days,Instr:as directed on package labeling
--- OUTSIDE RECORDS SUMMARY | 2016-12-11 15:16 | XMS REPORT | Referral Summary ---
Author Organization Unknown Address Unknown Phone Unavailable Care Team Providers Care Slubber Runner Name Role Phone Tosha Mcqueen JR Primary Care Physician [phone] Encounter VC Date(s): 12/10/14 - 12/10/14 [facility], [place], Family Medicine [address] [place] [address] [place] [id number] Discharge Diagnosis: Bronchitis Discharge Disposition: Home or Self Care Attending Physician: Hillary Srivastava APRN Admitting Physician: Hillary Srivastava APRN Vital Signs Most recent to 1 oldest [Reference Range]: Temperature Tympanic 36.1 degC [36.6-38.1 degC] *LOW* (12/10/14 1:05 PM) Peripheral Pulse 76 bpm Rate [60-100 bpm] (12/10/14 1:05 PM) Respiratory Rate 16 br/min [14-20 br/min] (12/10/14 1:05 PM) Blood Pressure 128/82 mmHg [90-140/60-90 mmHg] (12/10/14 1:05 PM) Problem List Condition Effective Dates Status Health Status Informant Unspecified 2001 Active cataract(Confirmed) Constipation Active (disorder)(Confirmed ) Generalized Active osteoarthritis (disorder)(Confirmed ) Depressive disorder, Active not elsewhere classified(Confirmed ) Dyslipidemia(Confirm Active ed) 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) Female urinary Active stress incontinence (finding)(Confirmed) Gastroesophageal Active reflux disease (disorder)(Confirmed ) Other specified iron Active deficiency anemias(Confirmed) Osteoporosis spec Active sites(Confirmed) 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) Anterior right Active rotator cuff tendonitis(Confirmed ) Anterior right Active rotator cuff strain(Confirmed)1 Traumatic Resolved arthropathy of the shoulder region (disorder)(Confirmed ) Varicella without Resolved complication(Confirm ed) Vitamin D Active deficiency(Confirmed ) 1injected 10/25/10; 12/14/10 Allergies, Adverse Reactions, Alerts No Known Allergies Medications Augmentin 875 mg-125 mg oral tablet 1 tabs, Oral, q12hr, X 10 days, # 20 tabs, 0 Refill(s), Pharmacy: [id number] Start Date: 12/10/14 Stop Date: 12/20/14 Status: Ordered biotin 5,000 mcg, Oral, Daily, take 1 tab, 0 Refill(s) Special Instructions: take 1 tab Start Date: 10/22/14 Status: Ordered Citracal Regular 250 mg-200 intl units oral tablet 1 tabs, Oral, Daily, 0 Refill(s) Start Date: 10/22/14 Status: Ordered ferrous sulfate 1 tabs, Oral, Daily, iron 27 mg iron tablet, 0 Refill(s) Special Instructions: iron 27 mg iron tablet Start Date: 10/22/14 Status: Ordered Lipitor 10 mg oral tablet 1 tabs, Oral, Daily, # 30 tabs, 6 Refill(s), Pharmacy: [place] [facility] [id number], 1 tabs Oral Daily Start Date: 11/17/14 Status: Ordered Magnesium 250 mg tablet Magnesium 250 mg tablet, Oral, Daily, take 1 tab, 0 Refill(s) Special Instructions: take 1 tab Start Date: 10/22/14 Status: Ordered Mobic 15 mg oral tablet See Instructions, TAKE ONE TABLET BY MOUTH EVERY DAY, # 90 tabs, 4 Refill(s), eRx: [facility] #[id number], TAKE ONE TABLET BY MOUTH EVERY DAY Special Instructions: TAKE ONE TABLET BY MOUTH EVERY DAY Start Date: 08/30/14 Status: Ordered NexIUM 20 mg oral delayed release capsule 1 caps, Oral, Daily, 0 Refill(s) Start Date: 10/22/14 Status: Ordered Promethazine with Codeine 6.25 mg-10 mg/5 mL oral syrup 5 mL, Oral, q6hr, as needed for cough, may cause drowsiness, X 14 days, # 280 mL , 0 Refill(s) Special Instructions: may cause drowsiness Start Date: 12/10/14 Stop Date: 12/24/14 Status: Ordered Zoloft 50 mg oral tablet See Instructions, TAKE ONE-HALF TABLET BY MOUTH AT BEDTIME, # 30 tabs, 1 Refill( s), eRx: [facility] #[id number], TAKE ONE-HALF TABLET BY MOUTH AT BEDTIME Special Instructions: TAKE ONE-HALF TABLET BY MOUTH AT BEDTIME Start Date: 05/24/14 Status: Ordered Results No data available for this section Immunizations Vaccine Date Refusal Reason tetanus/diphth/pertuss (Tdap) adult/adol 05/12/13 influenza virus vaccine, inactivated 06/30/14 influenza virus vaccine, live 07/14/12 influenza virus vaccine, live 08/19/08 pneumococcal 13-valent conjugate vaccine 11/05/14 pneumococcal 23-polyvalent [...] Title: Office Visit Note Author: Hillary Srivastava COST ACCOUNTING CLERK Date: 12/10/14 Assessment/Plan 1.Bronchitis Promethazine with codeine 1 teaspoon every 6 hours as needed for cough. May cause drowsiness. Patient counseled regarding diagnosis, natural history, pathophysiology, typical treatment, and expected results. Questions and concerns answered. Take antibiotics till complete. Mucinex twice a day as needed. Notify office if symptoms fail to improve. Ordered: Office Visit Level 3 Est [id number] Orders: amoxicillin-clavulanate, 1 tabs, Oral, q12hr, X 10 days, # 20 tabs, 0 Refill(s), Pharmacy: [id number] promethazine-codeine, 5 mL, Oral, q6hr, as needed for cough, may cause drowsiness, X 14 days, # 280 mL, 0 Refill(s) Addendum I reviewed this chart, the patient's medical history, and the by Richar Resident's/COST ACCOUNTING CLERK's/PA/RN's/PharmD's documented findings, and concur with the assessment and Layo GREGG plan as above. Tosha TERRELL, FAAFP on 10 December 2014 14:02:13 CDT
--- OUTSIDE RECORDS SUMMARY | 2016-12-11 15:16 | XMS REPORT | Referral Summary ---
Author Author [facility] Organization [facility] Address Unknown Phone Unavailable Care Team Providers Care Unloader Name Role Phone Manuelito Alexander Primary Care Physician [phone] Encounter [facility] [id number] Date(s): 04/14/15 - 04/14/15 [facility] [address] [id number] Discharge Diagnosis: Hypercholesteremia Discharge Diagnosis: Family history of heart disease Discharge Diagnosis: ABDOMINAL PAIN, EPIGASTRIC Discharge Diagnosis: FAMILY HISTORY OF DIABETES MELLITUS Discharge Disposition: -Home or Self Care Attending Physician: Tim Cali MD Admitting Physician: Tim Cali MD Vital Signs Most recent to 1 oldest [Reference Range]: Peripheral Pulse 65 bpm Rate [60-100 bpm] (04/14/15 11:28 AM) Blood Pressure 137/66 mmHg [90-140/60-90 mmHg] (04/14/15 11:28 AM) Problem List Condition Effective Dates Status [...] BID, # 180 tabs, 3 Refill(s), Pharmacy: [facility] # [id number], 1 tabs Oral BID Start Date: 10/10/15 Status: Ordered Lipitor 10 mg oral tablet 10 mg 1 tabs, Oral, Bedtime (once a day), # 90 tabs, 3 Refill(s), Pharmacy: [facility] #[id number], 1 tabs Oral Bedtime (once a day) Start Date: 10/10/15 Status: Ordered Mobic 15 mg oral tablet 15 mg 1 tabs, Oral, Daily, # 90 tabs, 3 Refill(s), Pharmacy: [facility] # [id number], 1 tabs Oral Daily Start Date: 10/10/15 [...] days, # 45 tabs, 3 Refill(s), Pharmacy: [facility] #[id number], 0.5 tabs Oral Daily,x90 days Start Date: [...] Smoking Status Never smoker Assessment and Plan No data available for this section
--- OUTSIDE RECORDS SUMMARY | 2016-12-11 15:17 | XMS REPORT | Referral Summary ---
Author Organization Unknown Address Unknown Phone Unavailable Care Team Providers Care Radiology Specialist Name Role Phone oTsha Mcqueen JR Primary Care Physician [phone] Encounter [facility] [id number] Date(s): 11/05/14 - 11/05/14 [facility] [place], Family Medicine [address] [place] [address] [place] [id number] Discharge Diagnosis: Medicare annual wellness visit, subsequent Discharge Diagnosis: Osteoporosis Discharge Diagnosis: Gastroesophageal reflux disease Discharge Diagnosis: Depressive disorder, not elsewhere classified 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 Discharge Diagnosis: Other specified iron deficiency anemias Discharge Diagnosis: Prediabetes Discharge Diagnosis: Vitamin D deficiency Discharge Diagnosis: Dyslipidemia Discharge Diagnosis: Female stress incontinence Discharge Disposition: Home or Self Care Attending Physician: Hillary Srivastava APRN Admitting Physician: Hillary Srivastava APRN Vital Signs Most recent to 1 oldest [Reference Range]: Temperature Tympanic 36.4 degC [36.6-38.1 degC] *LOW* (11/05/14 1:02 PM) Peripheral Pulse 68 bpm Rate [60-100 bpm] (11/05/14 1:02 PM) Blood Pressure 122/86 mmHg [90-140/60-90 mmHg] (11/05/14 1:02 PM) Problem List Condition Effective Dates Status Health Status Informant Bladder Active problem(Confirmed) Unspecified 2001 Active cataract(Confirmed) Constipation Active (disorder)(Confirmed ) Generalized Active osteoarthritis (disorder)(Confirmed ) Depressive disorder, Active not elsewhere classified(Confirmed ) 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) Female urinary Active stress incontinence (finding)(Confirmed) Gastroesophageal Active reflux disease (disorder)(Confirmed ) Other specified iron Active deficiency anemias(Confirmed) Osteoporosis spec Active sites(Confirmed) 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) Anterior right Active rotator cuff tendonitis(Confirmed ) Anterior right Active rotator cuff strain(Confirmed)1 Traumatic Active arthropathy of the shoulder region (disorder)(Confirmed ) [...] iron tablet Start Date: 10/22/14 Status: Ordered Magnesium 250 mg tablet Magnesium 250 mg tablet, Oral, Daily, take 1 tab, 0 Refill(s) Special Instructions: take 1 tab Start Date: 10/22/14 Status: Ordered Mobic 15 mg oral tablet See Instructions, TAKE ONE TABLET BY MOUTH EVERY DAY, # 90 tabs, 4 Refill(s), eRx: [facility] #[id number], TAKE ONE TABLET BY MOUTH EVERY DAY Special Instructions: TAKE ONE TABLET BY MOUTH EVERY DAY Start Date: 08/30/14 Status: Ordered NexIUM 20 mg oral delayed release capsule 1 caps, Oral, Daily, 0 Refill(s) Start Date: 10/22/14 Status: Ordered Reclast 5 mg/100 mL intravenous solution 100 mL, IV, Once, inject 5 MG every year last given 12/04/2013, 0 Refill(s) Special Instructions: inject 5 MG every year last given 12/04/2013 Start Date: 10/22/14 Status: Ordered Zoloft 50 mg oral tablet See Instructions, TAKE ONE-HALF TABLET BY MOUTH AT BEDTIME, # 30 tabs, 1 Refill( s), eRx: [facility] #[id number], TAKE ONE-HALF TABLET BY MOUTH AT BEDTIME [...] Title: Office Visit Note Author: Hillary Srivastava STOCKBROKING DEALER Date: 11/05/14 Assessment/Plan Degenerative joint disease involving multiple joints Continue meloxicam. Take with food. Ordered: Annual Wellness exam Subsequent G0439 Depressive disorder, not elsewhere classified Continue Zoloft. Ordered: Annual Wellness exam Subsequent G0439 Dyslipidemia Fasting lab next week. Ordered: Annual Wellness exam Subsequent G0439 Female stress incontinence Discussed referral to advanced physical therapy for treatment of stress incontinence. Strengthening pelvic floor muscles may be beneficial. Patient is agreeable. Referral sent. Patient hasn't heard from them in a week let us know. Gastroesophageal reflux disease Continue Nexium. Ordered: Annual Wellness exam Subsequent G0439 Medicare annual wellness visit, subsequent The patient's past medical, surgical, social and family history were updated and reviewed. Medications updated and reviewed. Other providers, suppliers were updated and reviewed. Depression screening was performed. Patient's cognitive ability and functional mobility were evaluated. Preventive screening measures were reviewed including risks and benefits. Written screening schedule was provided for them. Health education provided. Refer as appropriate. Voluntary advance care planning was discussed with the patient. Documented. Patient to return to the office fasting labs next week. Discussed new recommendation for Prevnar. Patient agreeable. Given by nursing. Plan follow-up in 6 months or sooner if medical needs arise. Continue current medications without change. recommend cont baby aspirin. Discussed risk vs benefit. Discussed risks/benefits of further colonoscopy, Pap, mammograms. Patient not certain she would want to pursue cancer was found. Encourage patient to set up [employer]UR[employer]OWER [employer]INCIPAL. Ordered: Annual Wellness exam Subsequent G0439 Osteoporosis Schedule DEXA scan at her convenience in the next month. Continue Reclast to a total of 5 years. Ordered: Annual Wellness exam Subsequent G0439 Other specified iron deficiency anemias CBC. Prediabetes Hemoglobin A1c. Ordered: Annual Wellness exam Subsequent G0439 Vitamin D deficiency vit D level Orders: Albumin/Creatinine Ratio, Urine BD Bone Density DEXA Axial Skeleton CBC w/ Differential Comprehensive Metabolic Panel Hemoglobin A1c Lipid Panel Vitamin D 25 Hydroxy Level
--- OUTSIDE RECORDS SUMMARY | 2016-12-11 15:17 | XMS REPORT | Referral Summary ---
Author Author [facility] Organization [facility] Address Unknown Phone Unavailable Care Team Providers Care Data Virtualization Consultant Name Role Phone Norma Vasquez Primary Care Physician [phone] Encounter [facility] Date(s): 03/16/15 - 03/16/15 [facility] [address] [place] [address] [address] [place] [address] [place] Discharge Diagnosis: Epigastric pain Discharge Diagnosis: Family history of heart disease Discharge Diagnosis: Hypercholesteremia Discharge Diagnosis: Hx of gastroesophageal reflux (GERD) Discharge Diagnosis: Family history of diabetes mellitus Discharge Disposition: 01-Home or Self Care Attending Physician: Tim Cali MD Admitting Physician: Tim Cali MD Referring Physician: Hillary Srivastava APRN Vital Signs Most recent to 1 oldest [Reference Range]: Peripheral Pulse 68 bpm Rate [60-100 bpm] (03/16/15 3:08 PM) Blood Pressure 120/60 mmHg [90-140/60-90 mmHg] (03/16/15 3:08 PM) Problem List Condition Effective Dates Status [...] QIDACHS, # 360 tabs, 3 Refill(s), Pharmacy: [facility] # [id number], 1 tabs Oral QIDACHS Start Date: 05/09/15 Status: Ordered Citracal Regular 250 mg-200 intl units oral tablet 1 tabs, Oral, Daily, 0 Refill(s) Start Date: 10/22/14 Status: Ordered Lipitor 10 mg oral tablet See Instructions, TAKE ONE TABLET BY MOUTH DAILY, # 90 tabs, eRx: [facility] #[id number], TAKE ONE TABLET BY MOUTH DAILY Start Date: 09/16/15 Status: Ordered Mobic 15 mg oral tablet See Instructions, TAKE ONE TABLET BY MOUTH EVERY DAY, # 90 tabs, 3 Refill(s), eRx: [facility] #[id number], TAKE ONE TABLET BY MOUTH EVERY DAY Start Date: 09/14/15 Status: Ordered multivitamin Daily, 0 Refill(s) Start Date: 02/02/15 Status: Ordered NexIUM 40 mg oral delayed release capsule 40 mg 1 caps, Oral, Daily, Run as name brand for her insurance, # 30 caps, 2 Refill(s), Pharmacy: [facility] #[id number], 1 caps Oral Daily,Instr:Run as name brand for her insurance Start Date: 05/19/15 Status: Ordered Zoloft 50 mg oral tablet 25 mg 0.5 tabs, Oral, Daily, # 90 tabs, 2 Refill(s), Pharmacy: [facility] #[id number], 0.5 tabs Oral Daily Start Date: 06/22/15 [...]
--- OUTSIDE RECORDS SUMMARY | 2016-12-11 15:17 | XMS REPORT | Referral Summary ---
Author Author [facility], [facility] Organization [facility] Address Unknown Phone Unavailable Care Team Providers Care Repairer Cylinder Heads Name Role Phone Manuelito Alexander Primary Care Physician [phone] Encounter [facility] [id number] Date(s): 10/08/16 - 10/08/16 [facility] [address] [place] [address] Discharge Diagnosis: Generalized osteoarthritis (disorder) Discharge Diagnosis: Gastroesophageal reflux disease Discharge Diagnosis: Cramp in lower leg Discharge Diagnosis: Anterior right rotator cuff tendonitis Discharge Diagnosis: Depressive disorder, not elsewhere classified Discharge Diagnosis: Solitary pulmonary nodule present on computed tomography of lung Discharge Diagnosis: Osteoporosis Discharge Diagnosis: Mixed hyperlipidemia Discharge Diagnosis: Dietary iron deficiency anemia Discharge Diagnosis: Prediabetes Discharge Disposition: 01-Home or Self Care Attending Physician: Hillary Srivastava APRN Admitting Physician: Hillary Srivastava APRN Vital Signs Most recent to 1 oldest [Reference Range]: Temperature Tympanic 36.1 degC [36.6-38.1 degC] *LOW* (10/08/16 10:36 AM) Peripheral Pulse 72 bpm Rate [60-100 bpm] (10/08/16 10:36 AM) Blood Pressure 116/66 mmHg [90-140/60-90 mmHg] (10/08/16 10:36 AM) Problem List Condition Effective Dates Status Health Status Informant 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) Unspecified 2001 Active cataract(Confirmed) Constipation Resolved (disorder)(Confirmed ) Generalized Active osteoarthritis (disorder)(Confirmed ) 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) Female urinary Active stress incontinence (finding)(Confirmed) Gastroesophageal Active reflux disease (disorder)(Confirmed ) Hiatal Active hernia(Confirmed) Dyslipidemia(Confirm < 12/10/14 Resolved ed) Prediabetes(Confirme Active d) Dietary iron Active deficiency anemia(Confirmed) Mixed Active hyperlipidemia(Confi rmed) Pulmonary Active nodules(Confirmed) Depressive disorder, Active not [...] Adverse Reactions, Alerts No Known Allergies Medications Carafate 1 g oral tablet 1 g 1 tabs, Oral, BID, # 180 tabs, 3 Refill(s), Pharmacy: [facility] # [id number], 1 tabs Oral BID Start Date: 10/10/15 Status: Ordered Lipitor 10 mg oral tablet 10 mg 1 tabs, Oral, Bedtime (once a day), # 90 tabs, 3 Refill(s), Pharmacy: [facility] #[id number], 1 tabs Oral Bedtime (once a day) Start Date: 10/10/15 Status: Ordered Mobic 15 mg oral tablet 15 mg 1 tabs, Oral, Daily, # 90 tabs, 3 Refill(s), Pharmacy: [facility] # [id number], 1 tabs Oral Daily Start Date: 10/10/15 Status: Ordered NexIUM 20 mg oral delayed release capsule 20 mg 1 caps, Oral, Daily, # 90 caps, 0 Refill(s), other reason (Rx) Start Date: 09/29/15 Status: Ordered sertraline 50 mg oral tablet 50 mg 1 tabs, Oral, Daily, # 90 tabs, 2 Refill(s), Pharmacy: [facility] # [id number], 1 tabs Oral Daily Start Date: 10/08/16 Status: Ordered Tylenol Extra Strength 500 mg, Oral, q6hr, as needed for pain, 0 Refill(s) Start Date: 09/29/15 Status: Ordered Results No data available for this section Immunizations Given and Recorded Vaccine Date Status Refusal Reason tetanus/diphth/pertuss (Tdap) adult/adol 05/12/13 Recorded influenza virus vaccine, inactivated 07/24/16 Recorded influenza virus vaccine, inactivated 06/22/15 Recorded influenza virus vaccine, inactivated 06/30/14 Recorded influenza virus vaccine, live 07/14/12 Given influenza virus vaccine, live 08/19/08 Given pneumococcal 13-valent conjugate vaccine 06/22/15 Recorded pneumococcal 13-valent conjugate vaccine 11/05/14 Given pneumococcal 23-polyvalent vaccine 07/04/05 Recorded Procedures Procedure Date Related Diagnosis Body Site [...] Title: Office Visit Note-CDM Author: Hillary Srivastava APRN Date: 10/08/16 Assessment/Plan 1.Anterior right rotator cuff tendonitis Refer to [facility] therapy per patient request. If no improvement over 2-3 weeks will need to consider referraldue to her history of prior surgery. Continue meloxicam. [id number] mg 1-2 tablets 3 times a day as needed for pain. Offered patient stronger pain medication. Denies need at this time. Above will also be beneficial for her back pain. Ordered: Office Visit Level 4 Est 24950 2.Depressive disorder, not elsewhere classified Well-controlled on Zoloft. Continue same. Ordered: Office Visit Level 4 Est 68729 3.Gastroesophageal reflux disease Well-controlled with current regimen. Continue same. Ordered: Office Visit Level 4 Est 86906 4.Mixed hyperlipidemia Under adequate control with current regimen. Continue same. Check lipids yearly. Ordered: Comprehensive Metabolic Panel Office Visit Level 4 Est 00567 5.Generalized osteoarthritis (disorder) Tylenol as above. Encouraged physical activity. Ordered: Office Visit Level 4 Est 99358 6.Dietary iron deficiency anemia CBC stable. Check periodically. Ordered: CBC w/ Differential Iron Level Office Visit Level 4 Est 77117 7.Prediabetes Previously well controlled with diet. Monitor hemoglobin [id number]. Ordered: Hemoglobin A1c Office Visit Level 4 Est 79501 8.Solitary pulmonary nodule present on computed tomography of lung Patient due for repeat CT scan. Will have nursing call her as I did not discuss it at the office visit. Asymptomatic. Ordered: Office Visit Level 4 Est 22735 9.Osteoporosis On medication holiday. Encouraged compliance with calcium andvitamin D supplementation. Weightbearing exercises. Plan DEXA scan later this year. Ordered: Office Visit Level 4 Est 75240 10.Cramp in lower leg Recommend calcium and magnesium supplementation. No improvement let me know. Ordered: Office Visit Level 4 Est 49092 Plan follow-up in 6 months withCMP, CBC, iron levelat that time.
--- OUTSIDE RECORDS SUMMARY | 2016-12-11 15:17 | XMS REPORT | Referral Summary ---
Author Organization Unknown Address Unknown Phone Unavailable Care Team Providers Care Nurse Midwife/Clinical Instructor Name Role Phone Tosha Mcqueen JR Primary Care Physician [phone] Encounter [facility] Date(s): 12/08/14 - 12/08/14 [facility], [place], Internal Medicine [address] [place] [address] [address] [id number] Discharge Diagnosis: OP (osteoporosis) Discharge Disposition: Home or Self Care Attending Physician: Layo Mcqueen JR, MD, FAAFP Admitting Physician: Layo Mcqueen JR, MD, FAAFP Vital Signs Most recent to 1 oldest [Reference Range]: Temperature Tympanic 35.8 degC [36.6-38.1 degC] *LOW* (12/08/14 3:24 PM) Peripheral Pulse 64 bpm Rate [60-100 bpm] (12/08/14 3:24 PM) Blood Pressure 128/64 mmHg [90-140/60-90 mmHg] (12/08/14 3:24 PM) Problem List Condition Effective Dates Status [...] Daily, # 30 tabs, 6 Refill(s), Pharmacy: [facility] [id number], 1 tabs Oral Daily Start Date: 11/17/14 Status: Ordered Magnesium 250 mg tablet Magnesium 250 mg tablet, Oral, Daily, take 1 tab, 0 Refill(s) Special Instructions: take 1 tab Start Date: 10/22/14 Status: Ordered Mobic 15 mg oral tablet See Instructions, TAKE ONE TABLET BY MOUTH EVERY DAY, # 90 tabs, 4 Refill(s), eRx: [facility] #[id number], TAKE ONE TABLET BY MOUTH EVERY DAY Special Instructions: TAKE ONE TABLET BY MOUTH EVERY DAY Start Date: 08/30/14 Status: Ordered NexIUM 20 mg oral delayed release capsule 1 caps, Oral, Daily, 0 Refill(s) Start Date: 10/22/14 Status: Ordered Zoloft 50 mg oral tablet See Instructions, TAKE ONE-HALF TABLET BY MOUTH AT BEDTIME, # 30 tabs, 1 Refill( s), eRx: [facility] #[id number], TAKE ONE-HALF TABLET BY MOUTH AT BEDTIME [...] to menorrhagia 1977 Salpingectomy 1977 Cervical onization 195 Adenoidectomy Tonsillectomy Social History Social History Type Response Smoking Status Never smoker Assessment and Plan Extracted from: Title: 5th year Reclast infusion Author: Alejandra Leonard RN Date: 12/08/14 IV started in left antecubital with #22 Protect Needle without difficulty. Reclast 5mg/100 ml hung to infuse over 20 min per pump. Fluids infused well. Pt tolerated Reclast well, denies any SE from previous infusions. Pt discharged to home.
--- OUTSIDE RECORDS SUMMARY | 2016-12-11 15:17 | XMS REPORT | Referral Summary ---
Author Author [facility], [facility] Care Organization [facility] Address Unknown Phone Unavailable Care Team Providers Care Table Attendant Name Role Phone Manuelito Alexander Primary Care Physician [phone] Encounter [facility] Date(s): 11/14/15 - 11/14/15 [facility] [address] [place] [address] [place] Discharge Disposition: 01-Home or Self Care Attending Physician: Tan Arreguin PA-C Admitting Physician: Tan Arreguin PA-C Vital Signs Most recent to 1 oldest [Reference Range]: Temperature Tympanic 36.9 degC [36.6-38.1 degC] (11/14/15 2:36 PM) Peripheral Pulse 82 bpm Rate [60-100 bpm] (11/14/15 2:36 PM) Blood Pressure 122/78 mmHg [90-140/60-90 mmHg] (11/14/15 2:36 PM) Problem List Condition Effective Dates Status [...] days, # 14 tabs, 0 Refill(s), Pharmacy: [facility] #[id number] Start Date: 11/14/15 Stop Date: 11/21/15 Status: Ordered biotin 5,000 mcg, Oral, Daily, take 1 tab, 0 Refill(s) Start Date: 10/22/14 Status: Ordered calcium citrate 500 mg, Oral, Daily, 0 Refill(s) Start Date: 09/29/15 Status: Ordered Carafate 1 g oral tablet 1 g 1 tabs, Oral, BID, # 180 tabs, 3 Refill(s), Pharmacy: [facility] # [id number], 1 tabs Oral BID Start Date: 10/10/15 Status: Ordered Lipitor 10 mg oral tablet 10 mg 1 tabs, Oral, Bedtime (once a day), # 90 tabs, 3 Refill(s), Pharmacy: [facility] #[id number], 1 tabs Oral Bedtime (once a day) Start Date: 10/10/15 Status: Ordered Mobic 15 mg oral tablet 15 mg 1 tabs, Oral, Daily, # 90 tabs, 3 Refill(s), Pharmacy: [facility] # [id number], 1 tabs Oral Daily Start Date: 10/10/15 [...] days, # 45 tabs, 3 Refill(s), Pharmacy: [facility] #[id number], 0.5 tabs Oral Daily,x90 days Start Date: [...]
--- OUTSIDE RECORDS SUMMARY | 2016-12-11 15:17 | XMS REPORT | Referral Summary ---
Author Author [facility], [facility] Organization [facility] Address Unknown Phone Unavailable Care Team Providers Care Mail Clerk Name Role Phone Manuelito Alexander Primary Care Physician [phone] Encounter [facility] [id number] Date(s): 04/09/16 - 04/09/16 [facility] [address] [place] [address] [place] Discharge Diagnosis: Depressive disorder, not elsewhere classified Discharge Diagnosis: Prediabetes Discharge Diagnosis: Osteoporosis Discharge Diagnosis: Gastroesophageal reflux disease Discharge Diagnosis: Generalized osteoarthritis (disorder) Discharge Diagnosis: Hepatic steatosis Discharge Diagnosis: Anemia Discharge Diagnosis: Synovial cyst Discharge Diagnosis: Dyslipidemia Discharge Disposition: 01-Home or Self Care Attending Physician: Hillary Srivastava APRN Admitting Physician: Hillary Srivastava APRN Vital Signs Most recent to 1 oldest [Reference Range]: Temperature Tympanic 36.5 degC [36.6-38.1 degC] *LOW* (04/09/16 1:19 PM) Peripheral Pulse 68 bpm Rate [60-100 bpm] (04/09/16 1:19 PM) Blood Pressure 112/64 mmHg [90-140/60-90 mmHg] (04/09/16 1:19 PM) Problem List Condition Effective Dates Status [...] BID, # 180 tabs, 3 Refill(s), Pharmacy: [facility] # [id number], 1 tabs Oral BID Start Date: 10/10/15 Status: Ordered Lipitor 10 mg oral tablet 10 mg 1 tabs, Oral, Bedtime (once a day), # 90 tabs, 3 Refill(s), Pharmacy: [facility] #[id number], 1 tabs Oral Bedtime (once a day) Start Date: 10/10/15 Status: Ordered Mobic 15 mg oral tablet 15 mg 1 tabs, Oral, Daily, # 90 tabs, 3 Refill(s), Pharmacy: [facility] # [id number], 1 tabs Oral Daily Start Date: 10/10/15 [...] days, # 45 tabs, 3 Refill(s), Pharmacy: [facility] #[id number], 0.5 tabs Oral Daily,x90 days Start Date: [...] and Plan Extracted from: Title: Office Visit Note-med check Author: Hillary Srivastava ENVIRONMENTAL SERVICES ATTENDANT Date: Assessment/Plan 1.Synovial cyst Discussed with patient my suspicion that that is a synovial cyst. We discussed draining it versus watchful waiting versus referral to podiatry. Patient would like to do some watchful waiting. They' re getting ready to leave on 1-2 month vacation in the next week. If she develops any problem she can let us know. Ordered: Office Visit Level 4 Est 65013 2.Depressive disorder, not elsewhere classified Continue same. Ordered: Office Visit Level 4 Est 14302 3.Dyslipidemia Continue same. Repeat lab in 6 months. Ordered: Comprehensive Metabolic Panel Lipid Panel Office Visit Level 4 Est 60494 4.Gastroesophageal reflux disease Continue same. Ordered: Office Visit Level 4 Est 65622 5.Generalized osteoarthritis (disorder) Continue same. Ordered: Office Visit Level 4 Est 21377 6.Hepatic steatosis Encourage healthy eating. Continue statin. 7.Prediabetes Continue healthy eating. 8.Osteoporosis Has completed course of Reclast. Monitor DEXA scannext year. 9.Anemia CBC in 6 months. Ordered: CBC w/ Differential
--- OUTSIDE RECORDS SUMMARY | 2016-12-11 15:17 | XMS REPORT | Continuity of Care Document ---
Author Author [facility] Organization [facility] Address Unknown Phone Unavailable Allergies Medications Problems Procedures Results Encounters ACCT No. Visit Date/Time Discharge Status Pt. Type Provider Facility Loc./Unit Complaint [id number] 11/10/2013 15:45:00 11/10/2013 23 :59:59 [facility] Outpatient [id number] 11/02/2013 10:30:00 11/02/2013 23 :59:59 C[facility] Outpatient
--- OUTSIDE RECORDS SUMMARY | 2016-12-11 15:17 | XMS REPORT | Referral Summary ---
Author Author [facility] [place], Family Medicine Organization [facility] Address Unknown Phone Unavailable Care Team Providers Care Munitions Worker Name Role Phone Norma Vasquez Primary Care Physician [phone] Encounter VC Date(s): 02/02/15 - 02/02/15 [facility] [address] [place] [address]- Discharge Diagnosis: Gastroesophageal reflux disease Discharge Diagnosis: [...] QIDACHS, # 360 tabs, 3 Refill(s), Pharmacy: [facility] # [id number], 1 tabs Oral QIDACHS Start Date: 05/09/15 Status: Ordered Citracal Regular 250 mg-200 intl units oral tablet 1 tabs, Oral, Daily, 0 Refill(s) Start Date: 10/22/14 Status: Ordered Lipitor 10 mg oral tablet 10 mg 1 tabs, Oral, Daily, # 90 tabs, 0 Refill(s), Pharmacy: [facility] # [id number], 1 tabs Oral Daily Start Date: 06/22/15 Status: Ordered multivitamin Daily, 0 Refill(s) Start Date: 02/02/15 Status: Ordered NexIUM 40 mg oral delayed release capsule 40 mg 1 caps, Oral, Daily, Run as name brand for her insurance, # 30 caps, 2 Refill(s), Pharmacy: [facility] #[id number], 1 caps Oral Daily,Instr:Run as name brand for her insurance Start Date: 05/19/15 Status: Ordered Zoloft 50 mg oral tablet 25 mg 0.5 tabs, Oral, Daily, # 90 tabs, 2 Refill(s), Pharmacy: [facility] #[id number], 0.5 tabs Oral Daily Start Date: 06/22/15 [...] Office Visit Note-ER f/u Author: Hillary Srivastava MFTS Date: Assessment/Plan 1.Abnormal TSH Mahamed TSH. No S/s of hypo/hyper thyroidism. Ordered: Office Visit Level 3 Est 22126 TSH with Reflex Free T4 Gastroesophageal reflux disease Cont Nexium. EC baby ASA dly. Ordered: Office Visit Level 3 Est 03754
--- NOTE | 2016-12-11 15:18 | NUR ---
Admit Pt. admitted to Rm. 173 on IRU from [place]. VS's stable. Pt. is a minimal assist transfer x1. She is A/O and pleasant. is present at bedside. Pt. belongings noted include: glasses and cell phone (with respiratory scientist). Will continue to monitor.
--- NOTE | 2016-12-11 15:18 | NUR ---
Admission Patient admitted to IRU room 173 from [facility] . Patient escorted to room in w/c with nursing staff. Patient oriented to the unit and room.
[2016-12-11 15:19] VITALS: BP 145/67; PULSE 72; RESP 14; TEMP 97.5; O2SAT 94
[2016-12-11 15:23] VITALS: Ht 154.9 cm; Wt 56.2 kg
[2016-12-11] MEDS ORDERED: HYDR-4246 PO (15:38)
[2016-12-11] MEDS ORDERED: DOCU-168 PO (15:38)
[2016-12-11] MEDS ORDERED: POLY17PO6 PO (15:38)
[2016-12-11] MEDS ORDERED: RIVA10TA PO (15:38)
[2016-12-11 16:30] VITALS: PULSE 72; RESP 14
[2016-12-11] MEDS ORDERED: RIVAROXABAN 10 MG TABLET PO SCH (17:30)
[2016-12-11] MEDS ORDERED: PRN ORDERS MC (17:30)
[2016-12-11] MEDS ORDERED: REFRESH CLASSIC Eye Drops 0.4ml Dropperette BOTH EYES PRN (17:30)
[2016-12-11] MEDS: HYDROCODONE/APAP 5 mg/325 mg TABLET PO PRN ×2 (18:02→21:31)
--- NOTE | 2016-12-11 19:15 | NUR ---
Summary Pt. is pleasant. She reports 6/10 right hip pain. Discussed pain med options with pt. and 1 tab of PRN [place] was given with dinner. Please see eMAR. Bilateral pedal pulses palpable. Tegaderm dressing to right hip noted to be C/D/I. No drainage, or s/s of infection noted. Pt. takes meds whole. She is currently resting in bed. Alarm is on. Will pass on report to night stocker.
[2016-12-11 20:30] VITALS: BP 154/63; PULSE 70; RESP 18; TEMP 98.3; O2SAT 93
[2016-12-11] MEDS ORDERED: DOCUSATE SODIUM 100 MG CAPSULE PO SCH (21:00)
[2016-12-11] MEDS: PANTOPRAZOLE 20 MG TABLET PO SCH (21:25)
[2016-12-11] MEDS: POLYETHYL.GLYCOL 3350 PACKET 17gm PO SCH (21:25)
[2016-12-11] MEDS: SUCRALFATE 1 G TABLET PO SCH (21:25)
[2016-12-11] MEDS: DOCUSATE SODIUM 100 MG CAPSULE PO SCH (21:34)
[2016-12-12 00:15] VITALS: PULSE 70; RESP 18
--- NOTE | 2016-12-12 00:46 | NUR ---
STATUS. PT ALERT AND OX3. PT ASSIST TO BR USING FWW AND GAITBELT. GAIT IS MOSTLY STEADY WITH MIN TO SBA. PT NEEDS CUEING WITH LOWERING HERSELF TO TOILET SEAT. PT C/O RT HIP PAIN 04/08. NORCO 5 2TABS GIVEN AT 2130. RT HIP INCISION WITH TEGADERM HS BGM 154.
[2016-12-12 05:36] LABS: BASOPHILS % (AUTO) 0.3 % (0-2); EOSINOPHILS # (AUTO) 0.2 T/MM3 (0-0.5); EOSINOPHILS % (AUTO) 3.3 % (0-4); HCT - HEMATOCRIT 27.3 % (36-46); HGB - HEMOGLOBIN 8.5 GM/DL (12-16); IMMATURE GRANULOCYTE # (AUTO) 0.01 T/MM3 (0.00-0.03); IMMATURE GRANULOCYTE % (AUTO) 0.2 % (0.0-0.5); LYMPHOCYTES # (AUTO) 1.3 T/MM3 (1-4.8); LYMPHOCYTES % (AUTO) 20.7 % (23-45); MEAN CORPUSCULAR HGB 29.2 UUG (26-34); MEAN CORPUSCULAR HGB CONC(MCHC 31.1 GM/DL (31-37); MEAN CORPUSCULAR VOLUME 93.8 UM3 (80-100); MEAN PLATELET VOLUME 10.6 UM3 (9.4-12.4); MONOCYTES # (AUTO) 0.7 T/MM3 (0-0.8); MONOCYTES % (AUTO) 11.9 % (0-9.0); NEUTROPHILS #(AUTO)-ABSOLUTE 3.9 T/MM3 (1.8-7.7); NEUTROPHILS % (AUTO) 63.6 % (33-66); RED BLOOD COUNT 2.91 M/MM3 (4.00-5.20); WBC - WHITE BLOOD COUNT 6.1 T/MM3 (4.5-11.0)
[2016-12-12 05:43] LABS: ANION GAP 5 MEQ/L (5-15); BUN/CREATININE RATIO 20 RATIO (6-26); CALCIUM 8.3 MG/DL (8.4-10.2); CHLORIDE 100 MEQ/L (98-107); CO2 - CARBON DIOXIDE 31 MEQ/L (22-30); CREATININE 0.8 MG/DL (0.7-1.2); GLOMERULAR FILTRATION RATE 68; GLUCOSE 120 MG/DL (65-110); SODIUM 136 MEQ/L (134-144)
[2016-12-12] MEDS: SUCRALFATE 1 G TABLET PO SCH ×2 (06:28→20:25)
[2016-12-12] MEDS: HYDROCODONE/APAP 5 mg/325 mg TABLET PO PRN ×3 (06:31→20:25)
--- NOTE | 2016-12-12 06:53 | NUR ---
SUMMARY. PT IS PLEASANT AND COOPERATIVE. MAKES NEEDS KNOWN. AMBULATES TO BR USING FWW AND GAITBELT WITH 1 MOD ASSIST. PT WEARING LIGHT PAD WITH UNDERWEAR. PT GIVEN NORCO 2 TABS AT 2130 AND AT 0645 FOR 6/10 PAIN LEVEL. FASTING BGM 110. PT TAKES MEDS WHOLE WITH SIPS OF WATER. PT REPORTS DOES NOT LIKE TAKING CARAFATE. TAKES NEXIUM AT HOME FOR GERD.
[2016-12-12 08:00] VITALS: BP 143/66; PULSE 79; RESP 12; TEMP 98.3; O2SAT 95
[2016-12-12] MEDS ORDERED: PNEUMOCOCCAL 23 VACCINE 0.5 ML VIAL IM ONE (09:00)
[2016-12-12] MEDS: RIVAROXABAN 10 MG TABLET PO SCH (09:22)
[2016-12-12] MEDS: SERTRALINE 50 MG TABLET PO SCH (09:22)
[2016-12-12] MEDS: POLYETHYL.GLYCOL 3350 PACKET 17gm PO SCH ×2 (09:22→20:24)
[2016-12-12] MEDS: DOCUSATE SODIUM 100 MG CAPSULE PO SCH ×2 (09:23→20:24)
--- NOTE | 2016-12-12 09:23 | CONSPD ---
EVELINA HANLEY V PRINTED PRODUCTS ASSEMBLER 12/12/16 0903: Consultation Info Date DATE: 12/12/16 TIME: 08:57 Date of Consultation: Dec 12, 2016 Attending Physician: Dr Kumar Reason for Consultation: Medical management HPI - Adult Date DATE: 12/12/16 TIME: 08:57 General Chief Complaint: S/P Right femoral neck fracture History of Present Illness Patient is a pleasant 89-year-old female who unfortunately fell on the evening of 12/07/16 while leaning into her car. It is reported that she lost her balance and fell onto her right hip. She was transported by EMS to via [facility] where she was found to have a right displaced subcapital femoral neck fracture. Right hip was surgically repaired on 12/08/16, however, patient continues to have some weakness and pain postoperatively. At baseline, patient is very independent, she resides in [place], and walks a half a mile 3 times a week. Patient was accepted to the inpatient rehabilitation unit for ongoing inpatient therapy for postoperative strengthening and improve function. Given other baseline medical comorbidities. The hospitalist services were consulted for medical management during her stay in the inpatient rehabilitation unit. Morning labs were reviewed. WBC count 6.1, RBCs 2.91, hemoglobin 8.5, hematocrit 27.3, platelet count 179. Sodium is 136, potassium 4.0, BUN 16, creatinine 0.8, glucose 120. Calcium was found to be low at 8.3. Lori is seen this morning for initial consultation. She is alert and oriented and eating breakfast. Overall, she states that her pain is mostly well controlled on her current regimen. She does report bowels have not moved since surgery. Eyes having an abdominal pain, chest pain or shortness of breath. Past Medical History Past Medical History Hyperlipidemia. GERD History of fatty liver. 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 Cataract extraction-2000 Appendectomy 1977 Hysterectomy 1977 Tonsillectomy Colonoscopy-1998 DEXA scan-2014 Bladder sling procedure Current Medications Home Meds Reported Medications Rivaroxaban (Xarelto) 10 Mg Tablet, 1 TAB PO DAILY, #10 TAB 12/11/16 Polyethylene Glycol 3350 (Miralax) 17 Gm Powd.pack, 1 PACKET PO BID, #30 PACKET 3 Refills 12/11/16 Docusate Sodium (Colace) 100 Mg Capsule, 1 CAP PO BID for STOOL SOFTENING, CAP 12/11/16 Hydrocodone/Acetaminophen ([place] 5-325 Tablet) 5-325 Tablet, 1-2 TAB PO Q4H Y for PRN ORDERS, TAB 12/11/16 Atorvastatin Calcium (Lipitor) 10 Mg Tablet, 10 MG PO DAILY 05/26/15 Sucralfate (Carafate) 1 Gm Tablet, 1 G PO BID, TAB Take 1 tablet, by mouth, 4 times a day as needed. 05/26/15 Polyvinyl Alcohol/Povidone/Pf (Refresh Classic Eye Drops) 1 Each Droperette, 2 DROP BOTH EYES BID Y for PRN ORDERS, ML 05/09/15 Esomeprazole Mag Trihydrate (Nexium) 20 Mg Capsule, 1 TAB PO HS, TAB 01/03/15 Sertraline (Sertraline) 50 Mg Tablet, 50 MG PO DAILY, TAB 01/03/15 Discontinued Reported Medications Calcium Carbonate (Tums) 300 Mg Tab.chew, 1-2 TAB PO PRN 05/09/15 Aspirin/Sod Bicarb/Citric Acid ([place] Original Tab Eff) 1 Each Tablet.eff , 1-2 TAB PO DAILY 05/09/15 Meloxicam (Meloxicam) 15 Mg Tablet, 1 TAB PO DAILY, TAB 02/11/15 Biotin (Biotin) 2,500 Mcg Capsule, 1 TAB PO DAILY 02/11/15 Multivitamin (Multi-Vitamin Daily) 1 Each Tablet, 1 TAB PO DAILY 02/11/15 Ca Citrate/Mgox/Vit D3/B6/Min (Citracal Plus Tablet) 1 Tab Tablet, 1 TAB PO DAILY 05/12/13 Allergies: Coded Allergies: oxycodone (Verified Adverse Reaction, Unknown, STRANGE DREAMS, 05/09/15) Family History Family History: Mother-anemia. Father-heart disease, diabetes, coronary artery disease. Sister-diabetes, kidney disease. Brother-prostate cancer Social History Smoking Status: Never smoker Substance Use Type: does not use Alcohol Intake: none Marital Status: In a relationship Sexuality: male partner Housing: house Household Members: significant other Current Occupational Status: retired Advance Directives: Yes DPOA for Healthcare Only Social History Comments PCP Dr Persaud at [facility] Review of Systems Constitutional: REPORTS: fatigue Musculoskeletal General: pain (Right hip) All Other Systems All Other Systems: Reviewed (remainder of 10-point ROS Neg.) Physical Exam General General Nourishment: well nourished, well developed Vital Signs Vital Signs Date Time Temp Pulse Resp B/P Pulse Ox O2 Delivery O2 Flow Rate FiO2 12/12/16 00:15 70 18 12/11/16 20:30 98.3 154/63 93 Room Air Height (Feet): 5 Height (Inches): 1.00 Eyes Brief: FOUND: EOMI, PERRL ENMT Brief: FOUND: mucosa moist, normal dentition, NOT FOUND: pharnyx erythema Respiratory Brief: FOUND: clear all muse, equal bilaterally, NOT FOUND: wheezes Abdomen (brief) Abdominal Brief: FOUND: BS normo active x4, soft, NOT FOUND: distended, tender Musculoskeletal (brief) Musculoskeletal Brief: FOUND: tenderness (Right hip) Integumentary (brief) Integumentary Brief: FOUND: dry, pink, warm Neurologic (brief) Neurological Brief: FOUND: cranial 2-12 intact Neurologic RN Documented GCS Eye Opening: Verbal: Motor: Total: Psychiatric (brief) FOUND: alert, attentive, normal affect, oriented Laboratory Laboratory Tests Test 12/11/16 23:20 12/12/16 05:11 12/12/16 06:27 Glucometer 154mg/dL 110mg/dL White Blood Count 6.1T/MM3 Red Blood Count 2.91M/MM3 Hemoglobin 8.5GM/DL Hematocrit 27.3% Mean Corpuscular Volume 93.8UM3 Mean Corpuscular Hemoglobin 29.2UUG Mean Corpuscular Hemoglobin Concent 31.1GM/DL RDW Standard Deviation 42.3FL Platelet Count 179T/MM3 Mean Platelet Volume 10.6UM3 Immature Granulocyte % (Auto) 0.2% Neutrophils (%) (Auto) 63.6% Lymphocytes (%) (Auto) 20.7% Monocytes (%) (Auto) 11.9% Eosinophils (%) (Auto) 3.3% Basophils (%) (Auto) 0.3% Absolute Immature Granulocyte (auto 0.01T/MM3 Absolute Neutrophils (auto) 3.9T/MM3 Absolute Lymphocytes (auto) 1.3T/MM3 Absolute Monocytes (auto) 0.7T/MM3 Absolute Eosinophils (auto) 0.2T/MM3 Absolute Basophils (auto) 0.0T/MM3 Turbidity < 20 Sodium Level 136MEQ/L Potassium Level 4.0MEQ/L Chloride Level 100MEQ/L Carbon Dioxide Level 31MEQ/L Anion Gap 5MEQ/L Blood Urea Nitrogen 16.0MG/DL Creatinine 0.8MG/DL Glomerular Filtration Rate Calc 68 BUN/Creatinine Ratio 20RATIO Glucose Level 120MG/DL Calculated Osmolality 264MOSM/KG Calcium Level 8.3MG/DL Icterus Index < 2 Chemistry Specimen Hemolysis < 15 Impression/Recommendation Problems: (1) S/P right hip fracture Status: Acute Assessment & Plan: 12/08/16- At [facility] (2) Postoperative anemia Status: Acute Assessment & Plan: Hemoglobin on admission to IRU 8.5 (3) GERD (gastroesophageal reflux disease) Status: Chronic (4) Hyperlipidemia Status: Chronic (5) Hiatal hernia Status: Chronic (6) Osteoarthritis Status: Chronic (7) Depression Status: Chronic (8) History of fatty infiltration of liver Status: Chronic Recommendation Agree with admission to the IRU unit for further rehabilitation, strengthening and improved postoperative function. [place] as needed for pain control. Continue to monitor bowel movements carefully as patient has not yet had a stool since surgery. Continue on MiraLAX twice a day and Colace twice a day. Also encourage staff to give milk of magnesia. Patient will need to be on Xarelto 10 milligrams daily for 20 additional days, and the date 12/31/16 for postoperative anticoagulation. Will need to monitor hemoglobin carefully given postoperative anemia. Hemoglobin today 8.5. Will recheck on Thursday 12/14. Monitor for any evidence of acute bleeding. The hospitalist services will continue to see patient for medical management during her stay on the rehabilitation unit. At time of discharge her medical care will return to her primary care provider, ISREAL Parson MD 12/12/16 6423: Past Medical History Current Medications Home Meds Reported Medications Rivaroxaban (Xarelto) 10 Mg Tablet, 1 TAB PO DAILY, #10 TAB 12/11/16 Polyethylene Glycol 3350 (Miralax) 17 Gm Powd.pack, 1 PACKET PO BID, #30 PACKET 3 Refills 12/11/16 Docusate Sodium (Colace) 100 Mg Capsule, 1 CAP PO BID for STOOL SOFTENING, CAP 12/11/16 Hydrocodone/Acetaminophen ([place] 5-325 Tablet) 5-325 Tablet, 1-2 TAB PO Q4H Y for PRN ORDERS, TAB 12/11/16 Atorvastatin Calcium (Lipitor) 10 Mg Tablet, 10 MG PO DAILY 05/26/15 Sucralfate (Carafate) 1 Gm Tablet, 1 G PO BID, TAB Take 1 tablet, by mouth, 4 times a day as needed. 05/26/15 Polyvinyl Alcohol/Povidone/Pf (Refresh Classic Eye Drops) 1 Each Droperette, 2 DROP BOTH EYES BID Y for PRN ORDERS, ML 05/09/15 Esomeprazole Mag Trihydrate (Nexium) 20 Mg Capsule, 1 TAB PO HS, TAB 01/03/15 Sertraline (Sertraline) 50 Mg Tablet, 50 MG PO DAILY, TAB 01/03/15 Discontinued Reported Medications Calcium Carbonate (Tums) 300 Mg Tab.chew, 1-2 TAB PO PRN 05/09/15 Aspirin/Sod Bicarb/Citric Acid ([place] Original Tab Eff) 1 Each Tablet.eff , 1-2 TAB PO DAILY 05/09/15 Meloxicam (Meloxicam) 15 Mg Tablet, 1 TAB PO DAILY, TAB 02/11/15 Biotin (Biotin) 2,500 Mcg Capsule, 1 TAB PO DAILY 02/11/15 Multivitamin (Multi-Vitamin Daily) 1 Each Tablet, 1 TAB PO DAILY 02/11/15 Ca Citrate/Mgox/Vit D3/B6/Min (Citracal Plus Tablet) 1 Tab Tablet, 1 TAB PO DAILY 05/12/13 Allergies: Coded Allergies: oxycodone (Verified Adverse Reaction, Unknown, STRANGE DREAMS, 05/09/15) Impression/Recommendation Problems: (1) S/P right hip fracture Status: Acute Assessment & Plan: 12/08/16- At [facility] (2) Postoperative anemia Status: Acute Assessment & Plan: Hemoglobin on admission to IRU 8.5 (3) GERD (gastroesophageal reflux disease) Status: Chronic (4) Hyperlipidemia Status: Chronic (5) Hiatal hernia Status: Chronic (6) Osteoarthritis Status: Chronic (7) Depression Status: Chronic (8) History of fatty infiltration of liver Status: Chronic (9) Gait instability Status: Acute Assessment & Plan: Post hip fracture. Recommendation Have independently interviewed and examined pt. Chart reviewed. Case discussed with my PRINTED PRODUCTS ASSEMBLER. Above care plan developed with my supervision; agree with above. Doing okay this evening. Hip starting to hurt more. Did have bowel movement. No nausea. Breathing well. No chest pain. Tolerating therapy. Lungs: clear CV: regular MSE: awake alert appropriate Plan: Agree with IRU admission to maximize functional status. Continue pain control. Encourage therapy. Encourage IS for pulm toilet. Monitor blood counts due to post op anemia and Xarelto use. Medically stable for IRU floor activities. EVELINA HANLEY APRN Dec 12, 2016 09:03 ISREAL KUMAR MD Dec 12, 2016 18:59
[2016-12-12] MEDS ORDERED: MILK OF MAGNESIA 30 ML SUSP PO ONE (09:30)
[2016-12-12] MEDS ORDERED: MILK OF MAGNESIA 30 ML SUSP PO PRN (09:30)
[2016-12-12 10:27] VITALS: RESP 12
--- NOTE | 2016-12-12 13:38 | PDIRUTEAM ---
Multidisciplinary Team Meeting Nursing Hx Incontinence: No Bladder Goal: 7+ Complete [place] Y/N: No Bladder Continent or Incontine: Continent Incontinent Product Used: Pads, Patient's Own Underwear Number of Times Incontinent of: 0 Cleaning Ability-Bladder: 5 Supervision/Setup Bowel Goal: 7+ Complete [place] Colostomy Y/N: No Bowel Incontinent/Continent: Continent Bowel Number of Accidents: 0 Number of times Incontinent of: 0 Toileting Ability: 4 Minimal Assistance Vital Signs Vital Signs Date Time Temp Pulse Resp B/P Pulse Ox O2 Delivery O2 Flow Rate FiO2 12/12/16 10:27 12 12/12/16 08:00 98.3 79 143/66 95 Room Air Current Medications Current Medications Medications (Trade) Dose Ordered Sig/Ines Route PRN Reason Start Time Stop Time Status Last Admin Dose Admin Docusate Sodium (Colace) 100 mg BID PO 12/11/16 21:00 12/12/16 09:23 Pantoprazole Sodium (Protonix) 20 mg HS PO 12/11/16 22:00 12/11/16 21:25 Acetaminophen/ Hydrocodone Bitart ([place] 5/325) 1-2 Q4H PRN PO PRN ORDERS 12/11/16 17:30 12/12/16 12:03 Polyethylene Glycol (Miralax) 17 g BID PO 12/11/16 21:00 12/12/16 09:22 Sertraline HCl (Zoloft) 50 mg DAILY PO 12/12/16 09:00 12/12/16 09:22 Sucralfate (Carafate) 1 g BID/E PO 12/11/16 20:00 12/12/16 06:28 Rivaroxaban (Xarelto) 10 mg DAILY PO 12/12/16 09:00 12/12/16 09:22 Comments Pain treated with norco 5 1-2 q 4 prn eating completion variable. Physical Therapy Bed Transfer Ability: 3 Moderate Assistance Bed Transfer Assistance Needed: 1 Person Bed FIM Score Reason: assist to lift legs in and out of bed Overall Wheelchair Transfer Ab: 4 Minimal Assistance Wheelchair Transfer Assistance: 1 Person Overall Toilet / Commode Trans: 4 Minimal Assistance Ambulation Ability: 4 Minimal Assistance Ambulation Assistance Needed: 1 Person Comments decreased endurance and pain Occupational Therapy Toileting Assistance Needed: 1 Person Comments adaptive equipment eval. Care Plan IRU Discharge Disposition: Home, self care Interventions/Goals Barriers to d/c, pain, balance, strength. Reeval in 1 week. RANI ROBERTSON MD Dec 12, 2016 13:38
[2016-12-12] MEDS ORDERED: PNEUMOCOCCAL VAC. ADMIN. CHARGE INJ ONE (14:00)
--- NOTE | 2016-12-12 15:18 | HPPDOC ---
HPI Date DATE: 12/12/16 TIME: 15:15 General Chief Complaint: S/P Right femoral neck fracture History of Present Illness 89 yo female with right hip fx. Fell getting into car and landed on right hip. ORIF performed and she has done well post op, with exception of post op anemia. No infection, no fever, no chills. Wound without issue by hx. She is wanting to get back home to active lifestyle as soon as possible. She is not able to care for herself at this time, cannot perform ADL's due to pain and limitation. Past Medical History Past Medical History Hyperlipidemia. GERD History of fatty liver. 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 Cataract extraction-2000 Appendectomy 1977 Hysterectomy 1977 Tonsillectomy Colonoscopy-1998 DEXA scan-2014 Bladder sling procedure Current Medications Home Meds Reported Medications Rivaroxaban (Xarelto) 10 Mg Tablet, 1 TAB PO DAILY, #10 TAB 12/11/16 Polyethylene Glycol 3350 (Miralax) 17 Gm Powd.pack, 1 PACKET PO BID, #30 PACKET 3 Refills 12/11/16 Docusate Sodium (Colace) 100 Mg Capsule, 1 CAP PO BID for STOOL SOFTENING, CAP 12/11/16 Hydrocodone/Acetaminophen ([place] 5-325 Tablet) 5-325 Tablet, 1-2 TAB PO Q4H Y for PRN ORDERS, TAB 12/11/16 Atorvastatin Calcium (Lipitor) 10 Mg Tablet, 10 MG PO DAILY 05/26/15 Sucralfate (Carafate) 1 Gm Tablet, 1 G PO BID, TAB Take 1 tablet, by mouth, 4 times a day as needed. 05/26/15 Polyvinyl Alcohol/Povidone/Pf (Refresh Classic Eye Drops) 1 Each Droperette, 2 DROP BOTH EYES BID Y for PRN ORDERS, ML 05/09/15 Esomeprazole Mag Trihydrate (Nexium) 20 Mg Capsule, 1 TAB PO HS, TAB 01/03/15 Sertraline (Sertraline) 50 Mg Tablet, 50 MG PO DAILY, TAB 01/03/15 Discontinued Reported Medications Calcium Carbonate (Tums) 300 Mg Tab.chew, 1-2 TAB PO PRN 05/09/15 Aspirin/Sod Bicarb/Citric Acid (Ashia[place] Original Tab Eff) 1 Each Tablet.eff , 1-2 TAB PO DAILY 05/09/15 Meloxicam (Meloxicam) 15 Mg Tablet, 1 TAB PO DAILY, TAB 02/11/15 Biotin (Biotin) 2,500 Mcg Capsule, 1 TAB PO DAILY 02/11/15 Multivitamin (Multi-Vitamin Daily) 1 Each Tablet, 1 TAB PO DAILY 02/11/15 Ca Citrate/Mgox/Vit D3/B6/Min (Citracal Plus Tablet) 1 Tab Tablet, 1 TAB PO DAILY 05/12/13 Allergies: Coded Allergies: oxycodone (Verified Adverse Reaction, Unknown, STRANGE DREAMS, 05/09/15) Family History Family History: Mother-anemia. Father-heart disease, diabetes, coronary artery disease. Sister-diabetes, kidney disease. Brother-prostate cancer Social History Smoking Status: Never smoker Substance Use Type: does not use Alcohol Intake: none Marital Status: In a relationship Sexuality: male partner Housing: house Household Members: significant other Current Occupational Status: retired Advance Directives: Yes DPOA for Healthcare Only Review of Systems Musculoskeletal General: see HPI All Other Systems All Other Systems: Reviewed Physical Exam General General Nourishment: well nourished, well developed, adult General Body Habitus: well groomed Vital Signs Vital Signs Date Time Temp Pulse Resp B/P Pulse Ox O2 Delivery O2 Flow Rate FiO2 12/12/16 10:27 12 12/12/16 08:00 98.3 79 143/66 95 Room Air Height (Feet): 5 Height (Inches): 1.00 Telemetry Rhythm: Sinus Rhythm Eyes Brief: FOUND: EOMI, PERRL Neck Brief: NOT FOUND: adenopathy, carotid bruits, thyromegaly Respiratory Brief: FOUND: clear all muse, equal bilaterally, NOT FOUND: rales , wheezes Cardiovascular (brief) Cardiac Brief: FOUND: pedal edema, regular rate, regular rhythm Capillary Refill: <2 sec Abdomen (brief) Abdominal Brief: FOUND: BS normo active x4, soft, NOT FOUND: tender Musculoskeletal (brief) Musculoskeletal Brief: FOUND: tenderness (right hip) Neurologic (brief) Neurological Brief: FOUND: cranial 2-12 intact, motor, sensory Neurologic RN Documented GCS Eye Opening: Verbal: Motor: Total: Laboratory Laboratory Tests Test 12/11/16 23:20 12/12/16 05:11 12/12/16 06:27 12/12/16 10:12 Glucometer 154mg/dL 110mg/dL 125mg/dL White Blood Count 6.1T/MM3 Red Blood Count 2.91M/MM3 Hemoglobin 8.5GM/DL Hematocrit 27.3% Mean Corpuscular Volume 93.8UM3 Mean Corpuscular Hemoglobin 29.2UUG Mean Corpuscular Hemoglobin Concent 31.1GM/DL RDW Standard Deviation 42.3FL Platelet Count 179T/MM3 Mean Platelet Volume 10.6UM3 Immature Granulocyte % (Auto) 0.2% Neutrophils (%) (Auto) 63.6% Lymphocytes (%) (Auto) 20.7% Monocytes (%) (Auto) 11.9% Eosinophils (%) (Auto) 3.3% Basophils (%) (Auto) 0.3% Absolute Immature Granulocyte (auto 0.01T/MM3 Absolute Neutrophils (auto) 3.9T/MM3 Absolute Lymphocytes (auto) 1.3T/MM3 Absolute Monocytes (auto) 0.7T/MM3 Absolute Eosinophils (auto) 0.2T/MM3 Absolute Basophils (auto) 0.0T/MM3 Turbidity < 20 Sodium Level 136MEQ/L Potassium Level 4.0MEQ/L Chloride Level 100MEQ/L Carbon Dioxide Level 31MEQ/L Anion Gap 5MEQ/L Blood Urea Nitrogen 16.0MG/DL Creatinine 0.8MG/DL Glomerular Filtration Rate Calc 68 BUN/Creatinine Ratio 20RATIO Glucose Level 120MG/DL Calculated Osmolality 264MOSM/KG Calcium Level 8.3MG/DL Icterus Index < 2 Chemistry Specimen Hemolysis < 15 Test 12/12/16 14:08 Glucometer 120mg/dL Assessment & Plan Problems: (1) Postoperative anemia Status: Acute Assessment & Plan: medical to follow. (2) S/P right hip fracture Status: Acute Assessment & Plan: PT and OT plan reviewed. 3 hours daily total. Pain management as needed. DVT Prophylaxis: SCD'S Code Status Do Not Resuscitate Interventions to Obtain Goals PT Treatment Plan: Therapeutic Exercise, Gait Training, Functional Activities , Patient/Family Education Hospital Course Summary Disclaimer The hospital course summary below is not to be considered part of the above Progress Note. RANI ROBERTSON MD Dec 12, 2016 15:17
--- NOTE | 2016-12-12 15:19 | IRU24PDOC ---
24 Hour Post Admission Eval Relevant Changes Relevant Changes: No I have reviewed the patient's information and concur with the finding and results of the pre-admission screen. Certification I certify the patient for rehabilitation. Patient Condition Prior Medical Conditions: (1) Postoperative anemia Status: Acute Additional Information: medical to follow. (2) S/P right hip fracture Status: Acute Additional Information: PT and OT plan reviewed. 3 hours daily total. Pain management as needed. Current Medical Conditions: (1) Postoperative anemia Status: Acute Additional Information: medical to follow. (2) S/P right hip fracture Status: Acute Additional Information: PT and OT plan reviewed. 3 hours daily total. Pain management as needed. Prior Functional Condition Lives With: Significant Other Residence Type: Private home/apartment Assistive Devices: No Assistive Device Prior Functional Status: Indep. at home or school Current Functional Status Patient Requirements * Patient has been determined to have significant functional limitations requiring at least two therapy disciplines. * Rehabilitation medical practitioner will provide admission approval, assessment and oversight and program coordination at least daily. * Intensive rehabilitative nursing services on site and available 24 hours a day. * The treatment plan will be developed within 24 hours of admission. * Interdisciplinary and goal oriented treatment by professional nursing, licensed clinical social worker, and rehabilitation therapist. * Interdisciplinary team meeting weekly inclusive of ongoing comprehensive discharge planning. First team meeting by day seven. Weekly meetings to follow. * Rehab Physician is the team meeting leader. * Pharmacy and diagnostic services will be available. * Ongoing comprehensive rehab program with at least 2 disciplines and greater than or equal to 3 hours a day, 5 days a week. Physical Therapy Minutes: 90 Occupational Therapy Minutes: 90 Therapy The patient is to receive therapy at least 5 days a week. Current Functional Status: Using assistive device PT Treatment Plan: Therapeutic Exercise, Gait Training, Functional Activities , Patient/Family Education Treatment Plan Frequency: five times per week Treatment Plan Duration: three weeks Plan of Care Comment: 6x week for first week and then 5w for next week OT Treatment Plan: ADL's (basic care), Ther. Exercise for ADL's, Balance Training ROM Comment: R shoulder decrease range See OT R hip decrease range due to swelling and stiffness from surgery3+/5 frossly with R LE hip flex 4-/5 with R knee flex. L LE Muscle Weakness Location: Right Lower Extremity Complication/Comorbidities Patient Complication Risk: (1) Postoperative anemia Status: Acute Comments: medical to follow. (2) S/P right hip fracture Status: Acute Comments: PT and OT plan reviewed. 3 hours daily total. Pain management as needed. Impact on Functional Outcomes Should be able to return to pre injury function with PT and OT and continued exercise. Barriers to Discharge: weakness, endurance, balance, pain control Plan to Avoid Complications Plan to Avoid Complications The patient cannot receive this care in a lesser intensive setting such as Alf or Outpatient Therapy due to the patient requiring the following []. The patient requires oversight by a rehabilitation physician to manage their rehabilitation treatment plan and the multidisciplinary approach to care that can only be provided in an IRF and requires a multidisciplinary approach to care , provided by professional PTs, OTs, STs, dieticians, RTs, rehabilitation nurses and is not available in lesser levels of care. The frequency and duration for therapy, as recommended by the professional Rehabilitation therapists, meet the patient's initial rehabilitation treatment plan needs and will be further evaluated on a weekly basis for progress and/or changes needed. RANI ROBERTSON MD Dec 12, 2016 15:19
[2016-12-12 16:08] VITALS: PULSE 79; RESP 12; O2SAT 95
--- NOTE | 2016-12-12 16:14 | NUR ---
CM SPOKE WITH PT, INTRODUCED SELF, EXPLAINED ROLE. PT STATED HER DC PLAN IS TO RETURN TO INDEPENDENT LIVING AT [facility]. SHE LIVES THERE WITH ANNA MARIE SHETH. SHE HAD NO QUESTIONS/NEEDS FOR THIS WORKER. Addendum: 12/12/16 at 1614 by ERIN CLEMENTS Amended: Links added.
[2016-12-12 16:20] VITALS: BP 140/61; PULSE 61; RESP 18; TEMP 98.5; O2SAT 94
--- NOTE | 2016-12-12 16:28 | NUR ---
CM MATT SCORE IS 7 Addendum: 12/12/16 at 1628 by ERIN CLEMENTS Amended: Links added.
--- NOTE | 2016-12-12 18:09 | NUR ---
SHIFT SUMMARY PT HAS BEEN PLEASANT AND COOPERATIVE. HAS WORKED WITH THERAPY. HAS BEEN OUT TO DINING ROOM FOR MEALS. PT AMBULATES IN ROOM WITH FWW AND GAIT BELT. PT AMBULATED TO THE FIRE EXTINGUISHER WITH THERAPY, BUT HAS USED WHEELCHAIR TO DINING ROOM WITH NURSING STAFF. PT IS CURRENTLY IN DINING ROOM EATING.
--- NOTE | 2016-12-12 18:09 | NUR ---
DM Screen Diet Order: 2000 calorie consistent carb diet Based on [address] [place] [address] [facility] with 1.3 activity factor and 1.3 injury factor caloric needs ~ 1587 to maintain current weight. Pt states she has prediabetes, but had kind of forgotten about it. Pt states she does not take any DM meds at home. Pt states she is getting too much food and would like fewer calories. RD recommends 1600 calorie consistent carb diet. RD spoke with RN who will address diet changes. RD available at ext [phone]
[2016-12-12] MEDS: PANTOPRAZOLE 20 MG TABLET PO SCH (22:15)
[2016-12-12] MEDS: ATORVASTATIN 10 MG TABLET PO SCH (22:15)
[2016-12-13 00:42] VITALS: BP 123/58; PULSE 65; RESP 16; TEMP 98.3; O2SAT 94
--- NOTE | 2016-12-13 05:22 | NUR ---
Chart Check 24 hour chart check completed
[2016-12-13] MEDS: SUCRALFATE 1 G TABLET PO SCH ×2 (06:37→22:13)
[2016-12-13] MEDS: HYDROCODONE/APAP 5 mg/325 mg TABLET PO PRN ×4 (06:47→20:20)
--- NOTE | 2016-12-13 07:45 | NUR ---
Summary Pt had complaint of pain in hip last night, managed with [place] 5's x2. Pt was oriented to bedside call light, and overhead light controls before sleep last night. This morning when woke for BGM pt said she had wanted to call her nurse but had forgot how. When pt was shown the nurse call button she felt frustrated that she had forgot. Pt stated she had pain again this morning but wanted only one [place] 5. Pt in bed sleeping, call light and water in reach. Report given
[2016-12-13] MEDS: DOCUSATE SODIUM 100 MG CAPSULE PO SCH ×2 (07:56→22:13)
[2016-12-13] MEDS: RIVAROXABAN 10 MG TABLET PO SCH (07:56)
[2016-12-13] MEDS: POLYETHYL.GLYCOL 3350 PACKET 17gm PO SCH ×2 (07:57→22:14)
[2016-12-13] MEDS: SERTRALINE 50 MG TABLET PO SCH (07:57)
[2016-12-13 08:00] VITALS: BP 162/68; PULSE 62; RESP 16; TEMP 98; O2SAT 92
--- NOTE | 2016-12-13 08:00 | NUR ---
Received report Patient is alert and oriented with intermittent confusion. Verbalizes tolerable pain at this time. RA. VSS Dressing intact to Rt. Hip. No concerns reported at this time.
--- NOTE | 2016-12-13 14:00 | NUR ---
Therapy Patient is cooperative with therapy. Ambulates to and from dining room with walker. No concerns reported. Continues to receive pain medication for Rt. hip pain.
[2016-12-13 16:20] VITALS: BP 159/57; PULSE 62; RESP 18; TEMP 98.3; O2SAT 93
--- NOTE | 2016-12-13 18:01 | NUR ---
EOS patient ambulates to meals with staff. Only takes 1 [place] at a time for Rt. hip pain. Did not have any concerns or complaints today.
[2016-12-13 22:09] VITALS: BP 139/71; PULSE 65; RESP 20; TEMP 98.6
[2016-12-13] MEDS: PANTOPRAZOLE 20 MG TABLET PO SCH (22:13)
[2016-12-13] MEDS: ATORVASTATIN 10 MG TABLET PO SCH (22:13)
[2016-12-14] MEDS: HYDROCODONE/APAP 5 mg/325 mg TABLET PO PRN ×4 (04:16→21:31)
[2016-12-14 05:08] LABS: BASOPHILS % (AUTO) 0.6 % (0-2); EOSINOPHILS # (AUTO) 0.1 T/MM3 (0-0.5); EOSINOPHILS % (AUTO) 2.1 % (0-4); HCT - HEMATOCRIT 27.3 % (36-46); HGB - HEMOGLOBIN 8.6 GM/DL (12-16); LYMPHOCYTES # (AUTO) 1.3 T/MM3 (1-4.8); LYMPHOCYTES % (AUTO) 20.5 % (23-45); MEAN CORPUSCULAR HGB 29.2 UUG (26-34); MEAN CORPUSCULAR HGB CONC(MCHC 31.5 GM/DL (31-37); MEAN CORPUSCULAR VOLUME 92.5 UM3 (80-100); MEAN PLATELET VOLUME 10.3 UM3 (9.4-12.4); MONOCYTES # (AUTO) 0.9 T/MM3 (0-0.8); NEUTROPHILS #(AUTO)-ABSOLUTE 3.9 T/MM3 (1.8-7.7); NEUTROPHILS % (AUTO) 62.8 % (33-66); RED BLOOD COUNT 2.95 M/MM3 (4.00-5.20); WBC - WHITE BLOOD COUNT 6.2 T/MM3 (4.5-11.0)
[2016-12-14 05:19] LABS: ANION GAP 9 MEQ/L (5-15); BUN/CREATININE RATIO 20 RATIO (6-26); CALCIUM 8.4 MG/DL (8.4-10.2); CHLORIDE 100 MEQ/L (98-107); CO2 - CARBON DIOXIDE 29 MEQ/L (22-30); CREATININE 0.7 MG/DL (0.7-1.2); GLOMERULAR FILTRATION RATE 79; GLUCOSE 114 MG/DL (65-110); POTASSIUM 4.3 MEQ/L (3.6-5); SODIUM 138 MEQ/L (134-144)
[2016-12-14] MEDS: SUCRALFATE 1 G TABLET PO SCH ×2 (06:24→21:27)
[2016-12-14 07:00] VITALS: BP 143/63; PULSE 61; RESP 16; TEMP 97.5; O2SAT 96
--- NOTE | 2016-12-14 07:25 | NUR ---
SHIFT SUMMARY Lori is oriented x 3, ambulates and transfers with 1 assist. She is able to adhere to her hip precautions. Takes meds whole with water. Incision on hip is covered with clear dressing and is free of drainage or redness. Blood sugars taken at HS and Fasting. She requested getting up to the recliner at approx. 430a.m. Sat with feet elevated and watched some tv, then later read. She had PRN pain meds 2 tabs at approx. 4am for pain.
[2016-12-14] MEDS: POLYETHYL.GLYCOL 3350 PACKET 17gm PO SCH ×2 (08:17→21:00)
[2016-12-14] MEDS: RIVAROXABAN 10 MG TABLET PO SCH (08:17)
[2016-12-14] MEDS: DOCUSATE SODIUM 100 MG CAPSULE PO SCH ×2 (08:17→21:27)
[2016-12-14] MEDS: SERTRALINE 50 MG TABLET PO SCH (08:18)
--- NOTE | 2016-12-14 08:23 | NUR ---
TAKEN REPORT AND ASSUMED CARE PATIENT ALERT / ORIENTED X3 RESTING ON THE RECLINER THIS MORNING VOICES NO PAIN DISCOMFORT ABLE TO VOICE NEEDS APPROPRIATELY. PATIENT HAS DRESSING RIGHT HIP NO DRAINAGE NOTED . WILL CONTINUE TO MONITOR.
--- NOTE | 2016-12-14 12:32 | NUR ---
SHIFT SUMMARY PATIENT BACK IN HER ROOM AFTER LUNCH RESTING WELL IN PLEASANT MOOD AMBULATES WITH ASSIST X1 USING FRONT WHEEL WALKER NO COMPLAIN OF PAIN AT THIS TIME AND HAS GOOD APPETITE WILL MONITOR.
[2016-12-14 16:14] VITALS: BP 145/64; PULSE 91; RESP 12; TEMP 98.2; O2SAT 92
--- NOTE | 2016-12-14 18:11 | NUR ---
END SHIFT RESTING IN THE ROOM WATCHING BASKETBALL VISITING WITH SPOUSE PT ALERT AND ORIENTED VERY PLEASANT MOST OF THE DAY COMPLAINED OF HIP PAIN THIS MORNING AND GIVEN PRN PAIN PILL. DRESSING CLEAN DRY AND INTACT AND HAS GOOD APPETITE TOOK MEDICINE WITHOUT COMPLAIN ET ASSIST X1 WITH CARE. WILL CONTINUE TO MONITOR.
[2016-12-14 20:24] VITALS: BP 155/67; PULSE 68; RESP 18; TEMP 98.6; O2SAT 95
[2016-12-14] MEDS: ATORVASTATIN 10 MG TABLET PO SCH (21:27)
[2016-12-14] MEDS: PANTOPRAZOLE 20 MG TABLET PO SCH (21:28)
[2016-12-14 23:38] VITALS: PULSE 68; RESP 18
--- NOTE | 2016-12-15 05:13 | NUR ---
SHIFT SUMMARY Patient has been quite fatigued this shift. She reports a busy day of therapy. Took PRN pain meds at for pain 02/06. Ambulated with min assist to bathroom and back to recliner. Took meds whole with water. She likes for her Carafate to dissolve some in her mouth before taking it. She choked a bit on it tonight, but was able to clear and swallow it. She stated that happens at home. Denies any pain or discomfort from it and states "I'm fine. Don't worry". Continent of bowel and bladder.
[2016-12-15] MEDS: SUCRALFATE 1 G TABLET PO SCH ×2 (06:17→20:33)
[2016-12-15] MEDS: HYDROCODONE/APAP 5 mg/325 mg TABLET PO PRN ×4 (06:22→20:33)
[2016-12-15 08:56] VITALS: BP 128/59; PULSE 73; RESP 18; TEMP 98.1; O2SAT 97
[2016-12-15] MEDS: DOCUSATE SODIUM 100 MG CAPSULE PO SCH ×2 (08:56→20:33)
[2016-12-15] MEDS: POLYETHYL.GLYCOL 3350 PACKET 17gm PO SCH ×2 (08:56→20:34)
[2016-12-15] MEDS: SERTRALINE 50 MG TABLET PO SCH (08:57)
[2016-12-15] MEDS: RIVAROXABAN 10 MG TABLET PO SCH (08:57)
--- NOTE | 2016-12-15 11:36 | PNPDOC ---
Subjective Date DATE: 12/15/16 TIME: 11:24 Subjective Lori was talking with occupational therapy about environmental factors at her house at increased risk for falling. She states that her pain is reasonable , and it hasn't been limiting her ability to participate in therapy. The occupational therapist reports that she is progressing well with therapy. Lori denies any shortness of breath, chest pain, or GI complaints. She denies constipation. Objective Vital Signs Vital signs Vital Signs Date Time Temp Pulse Resp B/P Pulse Ox O2 Delivery O2 Flow Rate FiO2 12/15/16 08:56 98.1 73 18 128/59 97 Room Air Telemetry Rhythm: Sinus Rhythm Height (Feet): 5 Height (Inches): 1.00 Weight (Kilograms): 56.600 General General Appearance: Alert, Orientated x 3, Well Nourished, Well Developed, No Acute Distress Eyes (Brief) Eyes: FOUND: PERRL, NOT FOUND: scleral icterus ENMT (Brief) ENMT: FOUND: mucosa moist, NOT FOUND: pharnyx erythema Respiratory (Brief) Respiratory: FOUND: clear all muse, equal bilaterally Cardiovascular (Brief) Cardiac: FOUND: regular rate, regular rhythm Abdomen (Brief) Abdominal: FOUND: BS normo active x4, soft, NOT FOUND: distended, tender Extremities (Brief) Extremity : Extremity Finding: NOT FOUND: edema Musculoskeletal (Brief) Musculoskeletal: NOT FOUND: deformity Integumentary (Brief) Integumentary: FOUND: dry, pink, warm Psychiatric (Brief) Psychiatric: FOUND: alert, attentive, normal affect, oriented Laboratory Laboratory Laboratory Tests 12/14/16 04:05 Laboratory Tests 12/14/16 04:05 Assessment & Plan Problems: (1) Gait instability Status: Acute Assessment & Plan: Post hip fracture. (2) S/P right hip fracture Status: Acute Assessment & Plan: 12/08/16- At [facility] (3) Postoperative anemia Status: Acute Assessment & Plan: Hemoglobin on admission to IRU 8.5 (4) GERD (gastroesophageal reflux disease) Status: Chronic (5) Hyperlipidemia Status: Chronic (6) Hiatal hernia Status: Chronic (7) Osteoarthritis Status: Chronic (8) Depression Status: Chronic (9) History of fatty infiltration of liver Status: Chronic Plan/Intensity of Service Fall prevention interventions discussed with patient, and fall safety checklist from the CDC was given to the patient. Acute blood loss anemia: Asymptomatic. Continue to monitor. Blood sugars are under fairly good control. She has a history of prediabetes and is not on any antiglycemic medication. [facility] records were reviewed. Last hemoglobin A1c was 6.1% on 12/26/15. We'll repeat hemoglobin A1c now. Continue Xarelto for anticoagulation. This can be discontinued on 12/31/16. Constipation has resolved. Continue scheduled Colace and MiraLAX. Repeat CBC and BMP on 12/17/16. Code Status Do Not Resuscitate Hospital Course Summary Disclaimer The hospital course summary below is not to be considered part of the above Progress Note. Hospital Course Summary 12/12/16 Agree with admission to the IRU unit for further rehabilitation, strengthening and improved postoperative function. [place] as needed for pain control. Continue to monitor bowel movements carefully as patient has not yet had a stool since surgery. Continue on MiraLAX twice a day and Colace twice a day. Also encourage staff to give milk of magnesia. Patient will need to be on Xarelto 10 milligrams daily for 20 additional days, and the date 12/31/16 for postoperative anticoagulation. Will need to monitor hemoglobin carefully given postoperative anemia. Hemoglobin today 8.5. Will recheck on Thursday 12/14. Monitor for any evidence of acute bleeding. The hospitalist services will continue to see patient for medical management during her stay on the rehabilitation unit. At time of discharge her medical care will return to her primary care provider, Dr. Alexander 12/15/16 Fall prevention interventions discussed with patient, and fall safety checklist from the CDC was given to the patient. Acute blood loss anemia: Asymptomatic. Continue to monitor. Blood sugars are under fairly good control. She has a history of prediabetes and is not on any antiglycemic medication. [facility] records were reviewed. Last hemoglobin A1c was 6.1% on 12/26/15. We'll repeat hemoglobin A1c now. Continue Xarelto for anticoagulation. This can be discontinued on 12/31/16. Constipation has resolved. Continue scheduled Colace and MiraLAX. Repeat CBC and BMP on 12/17/16. SHAWN CARVAJAL APRN Dec 15, 2016 11:29
[2016-12-15 15:50] VITALS: BP 148/78; PULSE 54; RESP 16; TEMP 98; O2SAT 98
[2016-12-15 15:57] VITALS: BP 136/66; PULSE 62; RESP 16; TEMP 98.3; O2SAT 95
--- NOTE | 2016-12-15 18:39 | NUR ---
SHIFT SUMMARY PATIENT ALERT AND ORIENTED X 3. PATIENT C/O PAIN ON R HIP. PRN PAIN MEDICATION RELIEVED PAIN ADEQUETLY. PATIENT UP WITH 1 ASSIST WITH WALKER AND GAIT BELT. PATIENT REPORTED BM TODAY. CONTINENT OF BOWEL AND BLADDER. ON HIP PRECAUTIONS. FAMILY AT BEDSIDE. WILL CONT TO MONITOR.
[2016-12-15] MEDS: ATORVASTATIN 10 MG TABLET PO SCH (20:33)
[2016-12-15] MEDS: PANTOPRAZOLE 20 MG TABLET PO SCH (20:34)
[2016-12-15 23:51] VITALS: PULSE 68; RESP 16
--- NOTE | 2016-12-16 02:03 | NUR ---
Telehospitalist Patient has not slept tonight. [place] Text to request order for Tylenol PM for patient per her request. Telehospitalist will enter order
[2016-12-16] MEDS ORDERED: DiphenhydrAMINE 25 MG CAPSULE PO ONE (02:15)
[2016-12-16] MEDS: HYDROCODONE/APAP 5 mg/325 mg TABLET PO PRN ×5 (02:25→22:16)
[2016-12-16] MEDS: SUCRALFATE 1 G TABLET PO SCH ×2 (06:35→20:47)
--- NOTE | 2016-12-16 06:44 | NUR ---
SHIFT SUMMARY Patient has not slept well this shift. NO received for one time dose of benadryl. She took this and was able to get 3 hours of sleep or so. PRN Jal given for hip pain. Continent of bowel and bladder. Is assisted up to recliner at this time to reposition. She reports plans to nap today after not getting much sleep last night. Takes meds whole with water. Ambulates with supervision/CGA. Performs own toileting transfers and hygiene with supervision.
[2016-12-16 07:59] VITALS: BP 139/75; PULSE 70; RESP 16; TEMP 97.9; O2SAT 97
[2016-12-16 08:00] VITALS: PULSE 68; RESP 16
[2016-12-16] MEDS: DOCUSATE SODIUM 100 MG CAPSULE PO SCH ×2 (09:00→20:48)
[2016-12-16] MEDS: POLYETHYL.GLYCOL 3350 PACKET 17gm PO SCH ×2 (09:00→20:48)
[2016-12-16] MEDS: RIVAROXABAN 10 MG TABLET PO SCH (09:14)
[2016-12-16] MEDS: SERTRALINE 50 MG TABLET PO SCH (09:14)
[2016-12-16 17:00] VITALS: BP 156/67; PULSE 71; RESP 16; TEMP 97.8; O2SAT 95
--- NOTE | 2016-12-16 17:00 | PDIRUOPC ---
Overall Plan of Care Date DATE: 12/14/16 TIME: 16:54 Relevant Changes Relevant Changes: No I have reviewed the patient's information and concur with the finding and results of the pre-admission screen. Review performed on 12/14/16, documented 12/16/16 due to call schedule. Certification I certify the patient for rehabilitation. Patient Impairments Prior Medical Conditions: (1) Postoperative anemia Status: Acute Additional Information: medical to follow. (2) S/P right hip fracture Status: Acute Additional Information: PT and OT plan reviewed. 3 hours daily total. Pain management as needed. Current Medical Conditions: (1) Postoperative anemia Status: Acute Additional Information: medical to follow. (2) S/P right hip fracture Status: Acute Additional Information: PT and OT plan reviewed. 3 hours daily total. Pain management as needed. Medical Prognosis Fair IRF Tx That Should Address Dx: (1) S/P right hip fracture (2) Gait instability Dx Requiring Medical FU: (1) Postoperative anemia (2) History of fatty infiltration of liver Vital Signs Vital Signs Date Time Temp Pulse Resp B/P Pulse Ox O2 Delivery O2 Flow Rate FiO2 12/16/16 08:00 68 16 12/16/16 07:59 97.9 139/75 97 Room Air Laboratory Laboratory Tests Test 12/14/16 20:39 12/15/16 04:01 12/15/16 06:27 12/15/16 10:19 Glucometer 124mg/dL 114mg/dL 129mg/dL Hemoglobin A1c 5.7% Test 12/15/16 14:36 12/15/16 20:57 12/16/16 06:24 12/16/16 11:27 Glucometer 183mg/dL 92mg/dL 103mg/dL 89mg/dL Test 12/16/16 14:18 Glucometer 162mg/dL Anticipated Interventions The patient requires inpatient IRF care for PT, OT, and/or ST for residuals remaining from RIght hip fracture resulting in muscular weakness and strength deficits. ROM Deficit: Right Lower Extremity Strength Deficits: Right Lower Extremity FIM Scores Ambulation Distance: 174 Ambulation Ability: 5 Supervision/Setup Ambulation Assistance Needed: 1 Person Stairs: 2 Maximum Assistance Stair Assistance Needed: 1 Person Number of Stairs: 4 Reason for Stair FIM: Pt requires SBA but is limited to < 12 steps due to c/o pain and fatigue. Eating Ability-FIM: 6 Modified [place] Grooming Ability: 5 Supervision/Setup Bathing Ability: 3 Moderate Assistance Upper Body Dressing Ability: 5 Supervision/Setup Lower Body Dressing Ability: 4 Minimal Assistance Lower Body Dressing Assistance: 1 Person Dressing-Lower FIM Score Reaso: Pt. required min assist to don pants, mod assist to don socks and shoes. Toileting Ability: 5 Supervision/Setup Toileting Assistance Needed: 1 Person Bed Transfer Ability: 5 Supervision/Setup Bed Transfer Assistance Needed: 1 Person Bed FIM Score Reason: assist to lift legs in and out of bed Chair Transfer Ability: 5 Supervision/Setup Chair Transfer Assistance Need: 1 Person Overall Wheelchair Transfer Ab: 5 Supervision/Setup Overall Toilet / Commode Trans: 6 Modified [place] Toilet / Commode Transfer Assi: 1 Person Tub / Shower Transfer Ability: 5 Supervision/Setup Tub / Shower Transfer [place]: 1 Person Comprehension Ability: 6 Modified [place] Social Interaction: 6 Modified [place] Problem Solvin Modified [place] Expression Ability: 7+ Complete [place] Memory: 6 Modified [place] Current Functional Status Patient Requires * Patient has been determined to have significant functional limitations requiring at least two therapy disciplines. * Rehabilitation medical practitioner will provide admission approval, assessment and oversight and program coordination at least daily. * Intensive rehabilitative nursing services on site and available 24 hours a day. * The treatment plan will be developed within 24 hours of admission. * Interdisciplinary and goal oriented treatment by professional nursing, social and political studies professor, and rehabilitation therapist. * Interdisciplinary team meeting weekly inclusive of ongoing comprehensive discharge planning. First team meeting by day seven. Weekly meetings to follow. * Rehab Physician is the team meeting leader. * Pharmacy and diagnostic services will be available. * Ongoing comprehensive rehab program with at least 2 disciplines and greater than or equal to 3 hours a day, 5 days a week. Physical Therapy Minutes: 90 Occupational Therapy Minutes: 90 Therapy The patient is to receive therapy at least 5 days a week. PT Treatment Plan: Therapeutic Exercise, Gait Training, Functional Activities , Patient/Family Education Treatment Plan Frequency: five times per week Treatment Plan Duration: three weeks Plan of Care Comment: 6x week for first week and then 5w for next week OT Treatment Plan: ADL's (basic care), Ther. Exercise for ADL's, UE Functional Training, Balance Training, Pt./Family Education, IADL's OT Treatment Plan Frequency: five times per week OT Treatment Plan Duration: three weeks Anticapted LOS/Outcomes Anticipated Functional Outcome return to preinjury baseline expected. Anticipated DC Destination: Home, self intermediate Safety Plan The patient will be provided with the development of a Home Safety Plan for return to a home or home-like environment and to ensure safety post discharge. Complicating Conditions Complications since IRF admit: (1) Postoperative anemia Status: Acute Comments: medical to follow. (2) S/P right hip fracture Status: Acute Comments: PT and OT plan reviewed. 3 hours daily total. Pain management as needed. Other Contributing Factors: Plan to Avoid Complications Barriers to Attaining Goals: weakness, balance, endurance, pain control, medical limitation Plan to Avoid Complications The patient cannot receive this care in a lesser intensive setting such as Nursing Home or Outpatient Therapy due to the patient requiring the following Medical supervision due to post op anemia anddepression. The patient requires oversight by a rehabilitation physician to manage their rehabilitation treatment plan and the multidisciplinary approach to care that can only be provided in an IRF and requires a multidisciplinary approach to care , provided by professional PTs, OTs, STs, dieticians, RTs, rehabilitation nurses and is not available in lesser levels of care. The frequency and duration for therapy, as recommended by the professional Rehabilitation therapists, meet the patient's initial rehabilitation treatment plan needs and will be further evaluated on a weekly basis for progress and/or changes needed. RANI ROBERTSON MD Dec 16, 2016 16:57
--- NOTE | 2016-12-16 17:02 | PNPDOC ---
IRU Subjective Date DATE: 12/16/16 TIME: 17:00 Subjective Pt worked with PT and OT yesterday, pain reasonably managed. Rested today. IRU Objective Vital Signs Vital signs Vital Signs Date Time Temp Pulse Resp B/P Pulse Ox O2 Delivery O2 Flow Rate FiO2 12/16/16 08:00 68 16 12/16/16 07:59 97.9 139/75 97 Room Air Telemetry Rhythm: Sinus Rhythm Height (Feet): 5 Height (Inches): 1.00 Weight (Kilograms): 56.600 General General Appearance: Alert, Orientated x 2 Respiratory (Brief) Respiratory: FOUND: clear all muse, equal bilaterally Cardiovascular (Brief) Cardiac: FOUND: regular rate, regular rhythm Capillary Refill: <2 sec Integumentary (Brief) Integumentary: FOUND: pink, warm Comments Incision healing well. No sign of cellulitis Laboratory Laboratory Laboratory Tests Test 12/14/16 20:39 12/15/16 04:01 12/15/16 06:27 12/15/16 10:19 Glucometer 124mg/dL 114mg/dL 129mg/dL Hemoglobin A1c 5.7% Test 12/15/16 14:36 12/15/16 20:57 12/16/16 06:24 12/16/16 11:27 Glucometer 183mg/dL 92mg/dL 103mg/dL 89mg/dL Test 12/16/16 14:18 Glucometer 162mg/dL Assessment & Plan Problems: (1) Postoperative anemia Status: Acute Assessment & Plan: Managed by medical. (2) S/P right hip fracture Status: Acute Assessment & Plan: Pt worked well with PT and OT. Cont to need improvement in strenght and stability. Cont with PT and OT per plan of care. Code Status Do Not Resuscitate Interventions to Obtain Goals PT Treatment Plan: Therapeutic Exercise, Gait Training, Functional Activities , Patient/Family Education OT Treatment Plan: ADL's (basic care), Ther. Exercise for ADL's, UE Functional Training, Balance Training, Pt./Family Education, IADL's Hospital Course Summary Disclaimer The hospital course summary below is not to be considered part of the above Progress Note. Hospital Course Summary 12/12/16 Agree with admission to the IRU unit for further rehabilitation, strengthening and improved postoperative function. [place] as needed for pain control. Continue to monitor bowel movements carefully as patient has not yet had a stool since surgery. Continue on MiraLAX twice a day and Colace twice a day. Also encourage staff to give milk of magnesia. Patient will need to be on Xarelto 10 milligrams daily for 20 additional days, and the date 12/31/16 for postoperative anticoagulation. Will need to monitor hemoglobin carefully given postoperative anemia. Hemoglobin today 8.5. Will recheck on Thursday 12/14. Monitor for any evidence of acute bleeding. The hospitalist services will continue to see patient for medical management during her stay on the rehabilitation unit. At time of discharge her medical care will return to her primary care provider, Dr. Alexander 12/15/16 Fall prevention interventions discussed with patient, and fall safety checklist from the CDC was given to the patient. Acute blood loss anemia: Asymptomatic. Continue to monitor. Blood sugars are under fairly good control. She has a history of prediabetes and is not on any antiglycemic medication. [facility] records were reviewed. Last hemoglobin A1c was 6.1% on 12/26/15. We'll repeat hemoglobin A1c now. Continue Xarelto for anticoagulation. This can be discontinued on 12/31/16. Constipation has resolved. Continue scheduled Colace and MiraLAX. Repeat CBC and BMP on 12/17/16. RANI ROBERTSON MD Dec 16, 2016 17:02
--- NOTE | 2016-12-16 18:34 | NUR ---
Shift Summary Pt is resting comfortably in the recliner at this time. Ambulates with stand by assist of 1, FWW, and gait belt. Tegaderm to the Rt hip is intact and clean. She was able to take her own shower and dress herself except for needing help pulling on her pants over her feet. She ate well for meals, did not need assist with her tray. She was able to manage brushing her teeth and her grooming items. Has been continent this shift, did not need assist with clothing or hygiene cares. C/O pain at times during the shift, received [place] 5 (2) at 1146 and [place] 5 (1) at 1727. Her BGM at 1000 was done about 1115 due to getting finished with breakfast late it was 89, she was offered juice but did not want it. At 1400 her BGM was 162. When in bed or the chair the alarm is in use, call light is within reach. Family was here to see her this shift.
[2016-12-16] MEDS: ATORVASTATIN 10 MG TABLET PO SCH (20:47)
[2016-12-16] MEDS: PANTOPRAZOLE 20 MG TABLET PO SCH (20:47)
[2016-12-16 21:11] VITALS: BP 117/64; PULSE 64; RESP 18; TEMP 97.9; O2SAT 91
[2016-12-16 22:51] VITALS: PULSE 64; RESP 18
--- NOTE | 2016-12-16 23:00 | NUR ---
Chart Check 24 hour chart check completed
[2016-12-17 05:29] LABS: BASOPHILS # (AUTO) 0.1 T/MM3 (0-0.2); BASOPHILS % (AUTO) 0.9 % (0-2); EOSINOPHILS # (AUTO) 0.1 T/MM3 (0-0.5); HCT - HEMATOCRIT 26.4 % (36-46); HGB - HEMOGLOBIN 8.2 GM/DL (12-16); IMMATURE GRANULOCYTE # (AUTO) 0.02 T/MM3 (0.00-0.03); IMMATURE GRANULOCYTE % (AUTO) 0.3 % (0.0-0.5); LYMPHOCYTES # (AUTO) 1.8 T/MM3 (1-4.8); LYMPHOCYTES % (AUTO) 28.6 % (23-45); MEAN CORPUSCULAR HGB 29.1 UUG (26-34); MEAN CORPUSCULAR HGB CONC(MCHC 31.1 GM/DL (31-37); MEAN CORPUSCULAR VOLUME 93.6 UM3 (80-100); MEAN PLATELET VOLUME 9.4 UM3 (9.4-12.4); MONOCYTES # (AUTO) 0.6 T/MM3 (0-0.8); MONOCYTES % (AUTO) 9.6 % (0-9.0); NEUTROPHILS #(AUTO)-ABSOLUTE 3.8 T/MM3 (1.8-7.7); NEUTROPHILS % (AUTO) 58.6 % (33-66); RED BLOOD COUNT 2.82 M/MM3 (4.00-5.20); WBC - WHITE BLOOD COUNT 6.4 T/MM3 (4.5-11.0)
[2016-12-17 05:33] LABS: ANION GAP 8 MEQ/L (5-15); BUN/CREATININE RATIO 15 RATIO (6-26); CALCIUM 8.5 MG/DL (8.4-10.2); CHLORIDE 102 MEQ/L (98-107); CO2 - CARBON DIOXIDE 28 MEQ/L (22-30); CREATININE 0.8 MG/DL (0.7-1.2); GLOMERULAR FILTRATION RATE 68; GLUCOSE 105 MG/DL (65-110); POTASSIUM 4.9 MEQ/L (3.6-5); SODIUM 138 MEQ/L (134-144)
[2016-12-17] MEDS: HYDROCODONE/APAP 5 mg/325 mg TABLET PO PRN ×5 (06:03→21:50)
--- NOTE | 2016-12-17 06:24 | NUR ---
SUMMARY. PT HAS BEEN ALERT AND OX3. PT MAKES NEEDS KNOWN. [place] 5 2TABS GIVEN AT 2200 AND AT 0600 FOR 6/10 PAIN LEVEL. PT HAS BEEN CONT B AND B. PT REPORTS HAS SLEPT MUCH BETTER TONIGHT.
[2016-12-17] MEDS: SUCRALFATE 1 G TABLET PO SCH ×2 (06:52→21:49)
[2016-12-17 08:00] VITALS: BP 145/69; PULSE 68; RESP 16; TEMP 97.8; O2SAT 96
[2016-12-17] MEDS: SERTRALINE 50 MG TABLET PO SCH (08:39)
[2016-12-17] MEDS: DOCUSATE SODIUM 100 MG CAPSULE PO SCH ×2 (08:39→21:00)
[2016-12-17] MEDS: POLYETHYL.GLYCOL 3350 PACKET 17gm PO SCH ×2 (08:39→21:00)
[2016-12-17] MEDS: RIVAROXABAN 10 MG TABLET PO SCH (09:05)
[2016-12-17 09:15] VITALS: PULSE 68; RESP 16
[2016-12-17] MEDS: ASCORBIC ACID 500 MG TABLET PO SCH (11:38)
[2016-12-17] MEDS: FERROUS SULFATE 324 MG TABLET PO SCH (11:38)
--- NOTE | 2016-12-17 11:44 | PNPDOC ---
IRU Subjective Date DATE: 12/17/16 TIME: 11:42 Subjective Pain managed. Patient is working well with PT and OT. She is frustrated that she was not able to be discharged on Saturday, however insurance is approved for for this week if needed. We did discuss reevaluating on Saturday, she was much happier about that. IRU Objective Vital Signs Vital signs Vital Signs Date Time Temp Pulse Resp B/P Pulse Ox O2 Delivery O2 Flow Rate FiO2 12/17/16 09:15 68 16 12/17/16 08:00 97.8 145/69 96 Room Air Telemetry Rhythm: Sinus Rhythm Height (Feet): 5 Height (Inches): 1.00 Weight (Kilograms): 56.600 General General Appearance: Alert, Orientated x 3 Respiratory (Brief) Respiratory: FOUND: clear all muse, equal bilaterally Cardiovascular (Brief) Cardiac: FOUND: regular rate, regular rhythm, NOT FOUND: pedal edema Capillary Refill: <2 sec Musculoskeletal (Brief) Comments Minimal tenderness over hip on gentle palpation. Integumentary (Brief) Comments Incision healing appropriately. Laboratory Laboratory Laboratory Tests Test 12/15/16 14:36 12/15/16 20:57 12/16/16 06:24 12/16/16 11:27 Glucometer 183mg/dL 92mg/dL 103mg/dL 89mg/dL Test 12/16/16 14:18 12/16/16 20:57 12/17/16 04:58 12/17/16 05:57 Glucometer 162mg/dL 142mg/dL 102mg/dL White Blood Count 6.4T/MM3 Red Blood Count 2.82M/MM3 Hemoglobin 8.2GM/DL Hematocrit 26.4% Mean Corpuscular Volume 93.6UM3 Mean Corpuscular Hemoglobin 29.1UUG Mean Corpuscular Hemoglobin Concent 31.1GM/DL RDW Standard Deviation 43.8FL Platelet Count 300T/MM3 Mean Platelet Volume 9.4UM3 Immature Granulocyte % (Auto) 0.3% Neutrophils (%) (Auto) 58.6% Lymphocytes (%) (Auto) 28.6% Monocytes (%) (Auto) 9.6% Eosinophils (%) (Auto) 2.0% Basophils (%) (Auto) 0.9% Absolute Immature Granulocyte (auto 0.02T/MM3 Absolute Neutrophils (auto) 3.8T/MM3 Absolute Lymphocytes (auto) 1.8T/MM3 Absolute Monocytes (auto) 0.6T/MM3 Absolute Eosinophils (auto) 0.1T/MM3 Absolute Basophils (auto) 0.1T/MM3 Turbidity < 20 Sodium Level 138MEQ/L Potassium Level 4.9MEQ/L Chloride Level 102MEQ/L Carbon Dioxide Level 28MEQ/L Anion Gap 8MEQ/L Blood Urea Nitrogen 12.0MG/DL Creatinine 0.8MG/DL Glomerular Filtration Rate Calc 68 BUN/Creatinine Ratio 15RATIO Glucose Level 105MG/DL Calculated Osmolality 266MOSM/KG Calcium Level 8.5MG/DL Icterus Index < 2 Chemistry Specimen Hemolysis < 15 Test 12/17/16 10:06 Glucometer 155mg/dL Assessment & Plan Problems: (1) Postoperative anemia Status: Acute Assessment & Plan: Managed by medical. (2) S/P right hip fracture Status: Acute Assessment & Plan: Patient is making progress, she is not safe to go home alone yet and she recognizes that she will have to manage on her own when she goes home. We will continue to follow PT and OT plan. Reevaluate Saturday. Code Status Do Not Resuscitate Interventions to Obtain Goals PT Treatment Plan: Therapeutic Exercise, Gait Training, Functional Activities , Patient/Family Education OT Treatment Plan: ADL's (basic care), Ther. Exercise for ADL's, UE Functional Training, Balance Training, Pt./Family Education, IADL's Hospital Course Summary Disclaimer The hospital course summary below is not to be considered part of the above Progress Note. Hospital Course Summary 12/12/16 Agree with admission to the IRU unit for further rehabilitation, strengthening and improved postoperative function. [place] as needed for pain control. Continue to monitor bowel movements carefully as patient has not yet had a stool since surgery. Continue on MiraLAX twice a day and Colace twice a day. Also encourage staff to give milk of magnesia. Patient will need to be on Xarelto 10 milligrams daily for 20 additional days, and the date 12/31/16 for postoperative anticoagulation. Will need to monitor hemoglobin carefully given postoperative anemia. Hemoglobin today 8.5. Will recheck on Thursday 12/14. Monitor for any evidence of acute bleeding. The hospitalist services will continue to see patient for medical management during her stay on the rehabilitation unit. At time of discharge her medical care will return to her primary care provider, Dr. Alexander 12/15/16 Fall prevention interventions discussed with patient, and fall safety checklist from the CDC was given to the patient. Acute blood loss anemia: Asymptomatic. Continue to monitor. Blood sugars are under fairly good control. She has a history of prediabetes and is not on any antiglycemic medication. [facility] records were reviewed. Last hemoglobin A1c was 6.1% on 12/26/15. We'll repeat hemoglobin A1c now. Continue Xarelto for anticoagulation. This can be discontinued on 12/31/16. Constipation has resolved. Continue scheduled Colace and MiraLAX. Repeat CBC and BMP on 12/17/16. RANI ROBERTSON MD Dec 17, 2016 11:44
[2016-12-17 16:04] VITALS: BP 128/63; PULSE 60; RESP 16; TEMP 98.4; O2SAT 94
--- NOTE | 2016-12-17 19:17 | NUR ---
Shift Summary Pt is resting comfortably in the recliner at this time. Ambulates with stand by assist of 1, FWW, and gait belt. Tegaderm to the Rt hip is intact and clean. She was able to take her own bag bath, needed assist with bathing her feet and dress herself except for needing help pulling on her pants over her feet and her shoes. She ate well for meals, did not need assist with her tray. She was able to manage brushing her teeth and her grooming items. Has been continent this shift, did not need assist with clothing or hygiene cares. C/O pain at times during the shift, received [place] 5 (2) at 1004 and 1455. Her BGM at 1000 was 155, and her 1400 her BGM was 124. When in bed or the chair the alarm is in use, call light is within reach. Family was here to see her this shift.
--- NOTE | 2016-12-17 21:41 | PNPDOC ---
IRU Subjective Date DATE: 12/17/16 TIME: 21:39 Subjective Pt up with OT during visit. She is showing improvement. IRU Objective Vital Signs Vital signs Vital Signs Date Time Temp Pulse Resp B/P Pulse Ox O2 Delivery O2 Flow Rate FiO2 12/17/16 16:04 98.4 60 16 128/63 94 Room Air Telemetry Rhythm: Sinus Rhythm Height (Feet): 5 Height (Inches): 1.00 Weight (Kilograms): 56.600 General General Appearance: Alert, Orientated x 3 Respiratory (Brief) Respiratory: FOUND: clear all muse, equal bilaterally Cardiovascular (Brief) Cardiac: FOUND: regular rate, regular rhythm Capillary Refill: <2 sec Laboratory Laboratory Laboratory Tests Test 12/16/16 06:24 12/16/16 11:27 12/16/16 14:18 12/16/16 20:57 Glucometer 103mg/dL 89mg/dL 162mg/dL 142mg/dL Test 12/17/16 04:58 12/17/16 05:57 12/17/16 10:06 12/17/16 14:11 White Blood Count 6.4T/MM3 Red Blood Count 2.82M/MM3 Hemoglobin 8.2GM/DL Hematocrit 26.4% Mean Corpuscular Volume 93.6UM3 Mean Corpuscular Hemoglobin 29.1UUG Mean Corpuscular Hemoglobin Concent 31.1GM/DL RDW Standard Deviation 43.8FL Platelet Count 300T/MM3 Mean Platelet Volume 9.4UM3 Immature Granulocyte % (Auto) 0.3% Neutrophils (%) (Auto) 58.6% Lymphocytes (%) (Auto) 28.6% Monocytes (%) (Auto) 9.6% Eosinophils (%) (Auto) 2.0% Basophils (%) (Auto) 0.9% Absolute Immature Granulocyte (auto 0.02T/MM3 Absolute Neutrophils (auto) 3.8T/MM3 Absolute Lymphocytes (auto) 1.8T/MM3 Absolute Monocytes (auto) 0.6T/MM3 Absolute Eosinophils (auto) 0.1T/MM3 Absolute Basophils (auto) 0.1T/MM3 Turbidity < 20 Sodium Level 138MEQ/L Potassium Level 4.9MEQ/L Chloride Level 102MEQ/L Carbon Dioxide Level 28MEQ/L Anion Gap 8MEQ/L Blood Urea Nitrogen 12.0MG/DL Creatinine 0.8MG/DL Glomerular Filtration Rate Calc 68 BUN/Creatinine Ratio 15RATIO Glucose Level 105MG/DL Calculated Osmolality 266MOSM/KG Calcium Level 8.5MG/DL Icterus Index < 2 Chemistry Specimen Hemolysis < 15 Glucometer 102mg/dL 155mg/dL 134mg/dL Test 12/17/16 20:25 Glucometer 159mg/dL Assessment & Plan Problems: (1) Postoperative anemia Status: Acute Assessment & Plan: Followed by medical. (2) S/P right hip fracture Status: Acute Assessment & Plan: Pt made sig progress today. Will cont with PT and OT and reeval on saturday. Code Status Do Not Resuscitate Interventions to Obtain Goals PT Treatment Plan: Therapeutic Exercise, Gait Training, Functional Activities , Patient/Family Education OT Treatment Plan: ADL's (basic care), Ther. Exercise for ADL's, UE Functional Training, Balance Training, Pt./Family Education, IADL's Hospital Course Summary Disclaimer The hospital course summary below is not to be considered part of the above Progress Note. Hospital Course Summary 12/12/16 Agree with admission to the IRU unit for further rehabilitation, strengthening and improved postoperative function. [place] as needed for pain control. Continue to monitor bowel movements carefully as patient has not yet had a stool since surgery. Continue on MiraLAX twice a day and Colace twice a day. Also encourage staff to give milk of magnesia. Patient will need to be on Xarelto 10 milligrams daily for 20 additional days, and the date 12/31/16 for postoperative anticoagulation. Will need to monitor hemoglobin carefully given postoperative anemia. Hemoglobin today 8.5. Will recheck on Thursday 12/14. Monitor for any evidence of acute bleeding. The hospitalist services will continue to see patient for medical management during her stay on the rehabilitation unit. At time of discharge her medical care will return to her primary care provider, Dr. Alexander 12/15/16 Fall prevention interventions discussed with patient, and fall safety checklist from the CDC was given to the patient. Acute blood loss anemia: Asymptomatic. Continue to monitor. Blood sugars are under fairly good control. She has a history of prediabetes and is not on any antiglycemic medication. [facility] records were reviewed. Last hemoglobin A1c was 6.1% on 12/26/15. We'll repeat hemoglobin A1c now. Continue Xarelto for anticoagulation. This can be discontinued on 12/31/16. Constipation has resolved. Continue scheduled Colace and MiraLAX. Repeat CBC and BMP on 12/17/16. RANI ROBERTSON MD Dec 17, 2016 21:41
[2016-12-17] MEDS: PANTOPRAZOLE 20 MG TABLET PO SCH (21:49)
[2016-12-17] MEDS: ATORVASTATIN 10 MG TABLET PO SCH (21:49)
[2016-12-17 23:02] VITALS: BP 138/68; PULSE 60; RESP 16; TEMP 98.4; O2SAT 100
[2016-12-18 00:20] VITALS: PULSE 60; RESP 16
[2016-12-18] MEDS: HYDROCODONE/APAP 5 mg/325 mg TABLET PO PRN ×5 (02:16→22:14)
--- NOTE | 2016-12-18 06:46 | NUR ---
SHIFT SUMMARY Lori requires supervision for transfers and ambulation. She did struggle with getting comfortable during the night and was positioned with pillows to accomplish this. She did use PRN pain meds in the evening and at HS. She is looking forward to returning home soon. Alert and oriented x 3. She uses call light appropriately. Maintains hip precautions.
[2016-12-18] MEDS: SUCRALFATE 1 G TABLET PO SCH ×2 (06:50→22:12)
[2016-12-18 08:00] VITALS: BP 92/49; PULSE 60; PULSE 78; RESP 16; RESP 18; TEMP 98; O2SAT 98
[2016-12-18] MEDS: SERTRALINE 50 MG TABLET PO SCH (08:54)
[2016-12-18] MEDS: ASCORBIC ACID 500 MG TABLET PO SCH (08:54)
[2016-12-18] MEDS: RIVAROXABAN 10 MG TABLET PO SCH (08:54)
[2016-12-18] MEDS: DOCUSATE SODIUM 100 MG CAPSULE PO SCH ×2 (08:55→21:00)
[2016-12-18] MEDS: FERROUS SULFATE 324 MG TABLET PO SCH (08:55)
[2016-12-18] MEDS: POLYETHYL.GLYCOL 3350 PACKET 17gm PO SCH ×2 (08:55→21:00)
--- NOTE | 2016-12-18 10:42 | PNPDOC ---
KOSTA VARELA 12/18/16 1034: Subjective Date DATE: 12/18/16 TIME: 10:31 Subjective Lori is seen this morning in follow up for her recent hip fracture with repair. She is seen while eating breakfast and reports that she is doing well. She denies any current pain, chest pain, shortness of breath, abdominal pain, nausea, vomiting or dysuria. No other concerns or complaints. Nursing notes were reviewed and indicate that overall she has been doing well but did struggle with pain control last night, requiring PRN pain medications. Her appetite remains good and bowels are moving. On exam, she is alert and orientated and in no apparent distress. Cardiac exam reveals regular rate and rhythm. lungs are clear to auscultation. Abdomen is soft, nontender with active bowel sounds. 2+ pedal pulses bilaterally without edema. Pleasant and cooperative on exam. Labs on 12/17 showed slight worsening of post-op anemia with hemoglobin at 8.2. She continues to deny symptoms. Blood sugars controlled and vital signs stable. Repeat A1c on 12/15 was normal at 5.7. Anticipate discharge in near future. Objective Vital Signs Vital signs Vital Signs Date Time Temp Pulse Resp B/P Pulse Ox O2 Delivery O2 Flow Rate FiO2 12/18/16 00:20 60 16 12/17/16 23:02 98.4 138/68 100 Room Air Height (Feet): 5 Height (Inches): 1.00 Weight (Kilograms): 56.600 General General Appearance: Alert, Orientated x 3, Cooperative, No Acute Distress Eyes (Brief) Eyes: FOUND: PERRL, NOT FOUND: scleral icterus ENMT (Brief) ENMT: FOUND: mucosa moist Neck (Brief) Neck: FOUND: midline, NOT FOUND: nuchal rigidity, tracheal deviation Respiratory (Brief) Respiratory: FOUND: clear all muse, equal bilaterally, symmetrical, NOT FOUND : rales, wheezes Cardiovascular (Brief) Cardiac: FOUND: regular rate, regular rhythm, NOT FOUND: pedal edema Abdomen (Brief) Abdominal: FOUND: BS normo active x4, soft, NOT FOUND: distended, tender Extremities (Brief) Extremity : Side: Bilateral Extremity: leg Extremity Finding: NOT FOUND: deformity, edema Lymphatic (Brief) Lymphatic: NOT FOUND: lymphedema Musculoskeletal (Brief) Musculoskeletal: FOUND: extremities move equally, NOT FOUND: deformity, loss of motion Integumentary (Brief) Integumentary: FOUND: dry, pink, warm Neurologic (Brief) Neurological: NOT FOUND: facial droop Psychiatric (Brief) Psychiatric: FOUND: alert, attentive, normal affect, oriented Laboratory Laboratory Laboratory Tests 12/17/16 04:58 Laboratory Tests 12/17/16 04:58 Assessment & Plan Problems: (1) Gait instability Status: Acute Assessment & Plan: Post hip fracture. (2) S/P right hip fracture Status: Acute Assessment & Plan: 12/08/16- At [facility] (3) Postoperative anemia Status: Acute Assessment & Plan: Hemoglobin on admission to IRU 8.5 (4) GERD (gastroesophageal reflux disease) Status: Chronic (5) Hyperlipidemia Status: Chronic (6) Hiatal hernia Status: Chronic (7) Osteoarthritis Status: Chronic (8) Depression Status: Chronic (9) History of fatty infiltration of liver Status: Chronic Plan/Intensity of Service 12/18/16: [place]. S/P Right Hip Fracture and Gait instability: * Continue to encourage participation in therapies for strengthening and rehabilitation. * Fall prevention interventions previously discussed with patient and fall safety checklist from the CDC was given to the patient. * Continue Xarelto for anticoagulation. This can be discontinued on 12/31/16. * Anticipate discharge in near future. Post-op anemia: * Continue to monitor closely for symptoms. * Will recheck CBC in AM to monitor blood counts. GERD with Hiatal hernia: * Continue Protonix and Carafate as directed. Hyperlipidemia: * Continue Lipitor as directed. Osteoarthritis: * Pain control per Dr. Leslie. Depression: * Continue Zoloft as directed and monitor closely for signs of worsening depression. Fatty Liver: * Continue to monitor. Prediabetes: * A1c on 12/15/16 was WNL at 5.7 - improved from A1c on 12/26/15 at 6.1. Blood sugars remain stable. Continue to monitor closely. Constipation-resolved. * Continue scheduled Colace and MiraLAX. DVT Prophylaxis: Xarelto Code Status Do Not Resuscitate Hospital Course Summary Disclaimer The hospital course summary below is not to be considered part of the above Progress Note. Hospital Course Summary 12/12/16 Agree with admission to the IRU unit for further rehabilitation, strengthening and improved postoperative function. [place] as needed for pain control. Continue to monitor bowel movements carefully as patient has not yet had a stool since surgery. Continue on MiraLAX twice a day and Colace twice a day. Also encourage staff to give milk of magnesia. Patient will need to be on Xarelto 10 milligrams daily for 20 additional days, and the date 12/31/16 for postoperative anticoagulation. Will need to monitor hemoglobin carefully given postoperative anemia. Hemoglobin today 8.5. Will recheck on Thursday 12/14. Monitor for any evidence of acute bleeding. The hospitalist services will continue to see patient for medical management during her stay on the rehabilitation unit. At time of discharge her medical care will return to her primary care provider, Dr. Alexander 12/15/16 Fall prevention interventions discussed with patient, and fall safety checklist from the CDC was given to the patient. Acute blood loss anemia: Asymptomatic. Continue to monitor. Blood sugars are under fairly good control. She has a history of prediabetes and is not on any antiglycemic medication. [facility] records were reviewed. Last hemoglobin A1c was 6.1% on 12/26/15. We'll repeat hemoglobin A1c now. Continue Xarelto for anticoagulation. This can be discontinued on 12/31/16. Constipation has resolved. Continue scheduled Colace and MiraLAX. Repeat CBC and BMP on 12/17/16. 12/18/16: [place]. S/P Right Hip Fracture and Gait instability: * Continue to encourage participation in therapies for strengthening and rehabilitation. * Fall prevention interventions previously discussed with patient and fall safety checklist from the CDC was given to the patient. * Continue Xarelto for anticoagulation. This can be discontinued on 12/31/16. * Anticipate discharge in near future. Post-op anemia: * Continue to monitor closely for symptoms. * Will recheck CBC in AM to monitor blood counts. GERD with Hiatal hernia: * Continue Protonix and Carafate as directed. Hyperlipidemia: * Continue Lipitor as directed. Osteoarthritis: * Pain control per Dr. Leslie. Depression: * Continue Zoloft as directed and monitor closely for signs of worsening depression. Fatty Liver: * Continue to monitor. Prediabetes: * A1c on 12/15/16 was WNL at 5.7 - improved from A1c on 12/26/15 at 6.1. Blood sugars remain stable. Continue to monitor closely. Constipation-resolved. * Continue scheduled Colace and MiraLAX. ISREAL TURK MD 12/18/161946: Assessment & Plan Plan/Intensity of Service Have independently interviewed and examined pt. Chart reviewed. Case discussed with my PA. Care plan developed with my supervision; agree with above. Doing well overall. Pain 'there.' Meds help, but not completely resolve. Tolerating pain medications well. Tolerating therapy. Appetite stable. No ab pain. Breathing well. Lungs: clear CV: regular AB: soft nt/nd +BS MSE: awake alert appropriate Plan: Continue therapy to maximize functional status. Continue current medications. Medically stable for IRU floor activities. KOSTA VARELA Dec 18, 2016 10:34 ISREAL TURK MD Dec 18, 2016 19:47
--- NOTE | 2016-12-18 13:24 | NUR ---
APLHONSO SPOKE WITH PT, RE: DC PLANNING. DISCUSSED A POTENTIAL DC OF TOMORROW, AND PT SAID SHE WANTS THIS TO HAPPEN. SHE SAID SHE IS READY TO RETURN HOME. DME: SHE HAS A WALKER, AND THERAPY IS RECOMMENDING A HIP KIT. DISCUSSED THAT PT CAN PURCHASE THIS AT [employer]; PROVIDED INFO FOR THIS ALONG WITH OTHER DME COMPANIES IF SHE CHOSE. DISCUSSED MOW; SHE SAID SHE DOES NOT WANT THIS. SHE GAVE PERMISSION TO CONTACT ANNA MARIE ABOUT DC PLANNING. Addendum: 12/18/16 at 1326 by ERIN CLEMENTS Amended: Links added.
--- NOTE | 2016-12-18 14:13 | NUR ---
CM CALLED [facility], SPOKE WITH JASON. UPDATED HER ON POTENTIAL DC DATE SAT, TOMORROW. SHE SAID SHE DOES NOT NEED ANY NOTIFICATION OR ANYTHING FURTHER FROM THIS WORKER. CALLED ANNA MARIE. UPDATED HIM. HE SAID HE IS VERY READY FOR PT TO RETURN HOME. DISCUSSED PT NEEDING A "HIP KIT", AND PROVIDED HIM THE INFO ABOUT HEALTH EQUIP. ALSO DISCUSSED HOME HEALTH; HE DID NOT REMEMBER THE NAME OF HIS AGENCY, BUT HE WILL CALL THIS WORKER WITH THIS INFORMATION WHEN HE GETS HOME, SINCE HE LIKES THE AGENCY HE IS WITH. HE HAD NO QUESTIONS/NEEDS FOR THIS WORKER.
[2016-12-18 16:00] VITALS: BP 144/66; PULSE 57; TEMP 98.3
--- NOTE | 2016-12-18 19:34 | NUR ---
Shift summary. Patient ambulating with FWW gait belt, stand by assist. Patient stand by assist for all ADLs and remembers her hip precautions. Wears glasses. Wears a pad for occasional incontinence and can manage by self. Wears own underwear. Patient going home tomorrow.
[2016-12-18 21:00] VITALS: BP 152/67; PULSE 63; RESP 18; TEMP 98.1; O2SAT 96
[2016-12-18] MEDS: PANTOPRAZOLE 20 MG TABLET PO SCH (22:13)
[2016-12-18] MEDS: ATORVASTATIN 10 MG TABLET PO SCH (22:13)
[2016-12-19] MEDS: HYDROCODONE/APAP 5 mg/325 mg TABLET PO PRN ×4 (02:38→18:05)
--- NOTE | 2016-12-19 05:04 | NUR ---
CHART CHECK 24hr chart check completed
[2016-12-19 05:18] LABS: BASOPHILS # (AUTO) 0.1 T/MM3 (0-0.2); BASOPHILS % (AUTO) 0.7 % (0-2); EOSINOPHILS # (AUTO) 0.1 T/MM3 (0-0.5); EOSINOPHILS % (AUTO) 1.6 % (0-4); HCT - HEMATOCRIT 26.5 % (36-46); HGB - HEMOGLOBIN 8.2 GM/DL (12-16); IMMATURE GRANULOCYTE # (AUTO) 0.02 T/MM3 (0.00-0.03); IMMATURE GRANULOCYTE % (AUTO) 0.3 % (0.0-0.5); LYMPHOCYTES # (AUTO) 1.7 T/MM3 (1-4.8); LYMPHOCYTES % (AUTO) 22.8 % (23-45); MEAN CORPUSCULAR HGB 28.7 UUG (26-34); MEAN CORPUSCULAR HGB CONC(MCHC 30.9 GM/DL (31-37); MEAN CORPUSCULAR VOLUME 92.7 UM3 (80-100); MEAN PLATELET VOLUME 9.4 UM3 (9.4-12.4); MONOCYTES # (AUTO) 0.7 T/MM3 (0-0.8); MONOCYTES % (AUTO) 9.3 % (0-9.0); NEUTROPHILS % (AUTO) 65.3 % (33-66); RED BLOOD COUNT 2.86 M/MM3 (4.00-5.20); WBC - WHITE BLOOD COUNT 7.6 T/MM3 (4.5-11.0)
--- NOTE | 2016-12-19 05:49 | NUR ---
SHIFT SUMMARY Patient is alert and oriented x 3. Did report pain in hip - took 2 PRN [place] at HS and again 4 hours later. She is continent of bowel and bladder. Got hot during noc and removed pjs. Hospital gown provided. She ambulates with Supervision with walker. Does own otilio care and clothing management.
[2016-12-19] MEDS: SUCRALFATE 1 G TABLET PO SCH (06:19)
[2016-12-19 08:08] VITALS: BP 179/71; PULSE 61; RESP 18; TEMP 98.2; O2SAT 96
[2016-12-19] MEDS: DOCUSATE SODIUM 100 MG CAPSULE PO SCH (08:09)
[2016-12-19] MEDS: POLYETHYL.GLYCOL 3350 PACKET 17gm PO SCH (08:10)
[2016-12-19 08:15] VITALS: PULSE 61; RESP 18
[2016-12-19] MEDS: ASCORBIC ACID 500 MG TABLET PO SCH (08:44)
[2016-12-19] MEDS: FERROUS SULFATE 324 MG TABLET PO SCH (08:44)
[2016-12-19] MEDS: SERTRALINE 50 MG TABLET PO SCH (08:44)
[2016-12-19] MEDS: RIVAROXABAN 10 MG TABLET PO SCH (08:44)
--- NOTE | 2016-12-19 11:22 | NUR ---
CM RECEIVED VM FROM ANNA MARIE RE: [facility] ([facility]) IS THE AGENCY HE HAS. SPOKE WITH PT. REVIEWED IM LETTER WITH HER, SHE SIGNED AND HAD NO QUESTIONS/CONCERNS. SHE SAID SHE WANTS TO DC TODAY. DISCUSSED HOME HEALTH THROUGH [facility], AND SHE SAID THIS IS WHAT SHE WANTS BECAUSE SHE AND ANNA MARIE BOTH LIKE THE SERVICES [facility] HAS PROVIDED FOR ANNA MARIE.
--- NOTE | 2016-12-19 14:31 | PDIRUTEAM ---
Multidisciplinary Team Meeting Nursing Hx Incontinence: No Bladder Goal: 6 Modified [place] Evans Y/N: No Bladder Continent or Incontine: Incontinent Incontinent Product Used: Pads, Patient's Own Underwear Number of Times Incontinent of: 1 Cleaning Ability-Bladder: 6 Modified [place] Bladder Incontinence Managemen: 6 Modified [place] Bowel Goal: 7+ Complete [place] Colostomy Y/N: No Bowel Incontinent/Continent: Continent Bowel Number of Accidents: 0 Number of times Incontinent of: 0 Cleaning Ability-Bowel: 6 Modified [place] Toileting Ability: 6 Modified [place] Vital Signs Vital Signs Date Time Temp Pulse Resp B/P Pulse Ox O2 Delivery O2 Flow Rate FiO2 12/19/16 08:15 61 18 12/19/16 08:08 98.2 179/71 96 Room Air Current Medications Current Medications Medications (Trade) Dose Ordered Sig/Ines Route PRN Reason Start Time Stop Time Status Last Admin Dose Admin Atorvastatin Calcium (LIPITOR 10 mg) 10 mg HS PO 12/12/16 22:00 12/18/16 22:13 Docusate Sodium (Colace) 100 mg BID PO 12/11/16 21:00 12/15/16 20:33 Pantoprazole Sodium (Protonix) 20 mg HS PO 12/11/16 22:00 12/18/16 22:13 Acetaminophen/ Hydrocodone Bitart ([place] 5/325) 1-2 Q4H PRN PO PRN ORDERS 12/11/16 17:30 12/19/16 13:00 Polyethylene Glycol (Miralax) 17 g BID PO 12/11/16 21:00 12/15/16 08:56 Sertraline HCl (Zoloft) 50 mg DAILY PO 12/12/16 09:00 12/19/16 08:44 Sucralfate (Carafate) 1 g BID/E PO 12/11/16 20:00 12/19/16 06:19 Rivaroxaban (Xarelto) 10 mg DAILY PO 12/12/16 09:00 12/15/16 11:35 DC 12/15/16 08:57 Rivaroxaban (Xarelto) 10 mg DAILY PO 12/16/16 09:00 12/31/16 10:00 12/19/16 08:44 Ferrous Sulfate (Feosol) 324 mg WB PO 12/17/16 10:00 12/19/16 08:44 Ascorbic Acid (VITAMIN C 500 mg Tablet) 500 mg DAILY PO 12/17/16 10:00 12/19/16 08:44 Comments managing pain with norco 5mg, 2 tabs q 6 hours. planning to d/c today. Physical Therapy Bed Transfer Ability: 6 Modified [place] Bed Transfer Assistance Needed: 1 Person Bed FIM Score Reason: assist to lift legs in and out of bed Chair Transfer Ability: 5 Supervision/Setup Chair Transfer Assistance Need: 1 Person Overall Wheelchair Transfer Ab: 5 Supervision/Setup Wheelchair Transfer Assistance: 1 Person Overall Toilet / Commode Trans: 6 Modified [place] Ambulation Ability: 5 Supervision/Setup Ambulation Assistance Needed: 1 Person Ambulation Distance: 390 Comments FIMS 5-6 Forgets hip precautions, but written note on walker is helping her remember. Occupational Therapy Grooming Ability: 6 Modified [place] Bathing Ability: 3 Moderate Assistance Upper Body Dressing Ability: 6 Modified [place] Lower Body Dressing Ability: 5 Supervision/Setup Lower Body Dressing Assistance: 1 Person Dressing-Lower FIM Score Reaso: Pt. required min assist to don pants, mod assist to don socks and shoes. Toileting Assistance Needed: 1 Person Comments FIMS 6. Care Plan Condition at time of discharge: Fair IRU Discharge Disposition: Home, self care, Rehab Unit/Facility Interventions/Goals Plan d/c to [facility] independent. HIP kit and walker. Home health needed. Barriers to d/c, weakness. RANI ROBERTSON MD Dec 19, 2016 14:30
[2016-12-19] MEDS ORDERED: RIVA10TA PO (14:55)
[2016-12-19] MEDS ORDERED: HYDR-4246 PO (14:55)
--- NOTE | 2016-12-19 15:43 | PD.DME ---
Patient Information Patient Information Patient Name Lori Shankar Date of 1925 [address] [place] [address] Height (Feet): 5 Height (Inches): 1.00 Weight (Kilograms): 56.200 Allergies: Coded Allergies: oxycodone (Verified Adverse Reaction, Unknown, STRANGE DREAMS, 05/09/15) Estimated ROSIBEL: 3 mos Date of Face to Face Needs Ass: Dec 19, 2016 Durable Medical Equipment Diagnosis Diagnosis: hip fracture, orif Ambulatory Aids Ambulatory Aids: Walker-folding (2 front wheel walker.) Additonal Information Physician Information Kareem Leslie MD Address:[address] [place] [address] City: [place] State: [place] Zip: [id number] KAREEM LESLIE MD Dec 19, 2016 15:43
--- NOTE | 2016-12-19 15:49 | DSPDOC ---
General Date Date DATE: 12/19/16 TIME: 15:46 Attending Physician Rani Leslie MD Admitting Physician Rani Leslie MD Consulting Physician Ino Kumar MD Admitting Diagnosis ORIF right femur Discharge Diagnosis ORIF right femur, right femur fx dislocated. Laboratory Laboratory Tests Test 12/18/16 06:02 12/18/16 10:20 12/18/16 13:59 12/18/16 22:24 Glucometer 100mg/dL (65-110) 136mg/dL (65-110) 149mg/dL (65-110) 98mg/dL (65-110) Test 12/19/16 04:24 12/19/16 06:18 12/19/16 10:18 12/19/16 14:28 White Blood Count 7.6T/MM3 (4.5-11.0) Red Blood Count 2.86M/MM3 (4.00-5.20) Hemoglobin 8.2GM/DL (12-16) Hematocrit 26.5% (36-46) Mean Corpuscular Volume 92.7UM3 (80-100) Mean Corpuscular Hemoglobin 28.7UUG (26-34) Mean Corpuscular Hemoglobin Concent 30.9GM/DL (31-37) RDW Standard Deviation 43.1FL (36.9-50.2) Platelet Count 330T/MM3 (130-400) Mean Platelet Volume 9.4UM3 (9.4-12.4) Immature Granulocyte % (Auto) 0.3% (0.0-0.5) Neutrophils (%) (Auto) 65.3% (33-66) Lymphocytes (%) (Auto) 22.8% (23-45) Monocytes (%) (Auto) 9.3% (0-9.0) Eosinophils (%) (Auto) 1.6% (0-4) Basophils (%) (Auto) 0.7% (0-2) Absolute Immature Granulocyte (auto 0.02T/MM3 (0.00-0.03) Absolute Neutrophils (auto) 5.0T/MM3 (1.8-7.7) Absolute Lymphocytes (auto) 1.7T/MM3 (1-4.8) Absolute Monocytes (auto) 0.7T/MM3 (0-0.8) Absolute Eosinophils (auto) 0.1T/MM3 (0-0.5) Absolute Basophils (auto) 0.1T/MM3 (0-0.2) Vitamin B12 Level 295PG/ML (239-931) Glucometer 115mg/dL (65-110) 153mg/dL (65-110) 153mg/dL (65-110) History of Present Illness 89 yo female with right hip fx. Fell getting into car and landed on right hip. ORIF performed and she has done well post op, with exception of post op anemia. No infection, no fever, no chills. Wound without issue by hx. She is wanting to get back home to active lifestyle as soon as possible. She is not able to care for herself at this time, cannot perform ADL's due to pain and limitation. Hospital Course 12/12/16 Agree with admission to the IRU unit for further rehabilitation, strengthening and improved postoperative function. [place] as needed for pain control. Continue to monitor bowel movements carefully as patient has not yet had a stool since surgery. Continue on MiraLAX twice a day and Colace twice a day. Also encourage staff to give milk of magnesia. Patient will need to be on Xarelto 10 milligrams daily for 20 additional days, and the date 12/31/16 for postoperative anticoagulation. Will need to monitor hemoglobin carefully given postoperative anemia. Hemoglobin today 8.5. Will recheck on Thursday 12/14. Monitor for any evidence of acute bleeding. The hospitalist services will continue to see patient for medical management during her stay on the rehabilitation unit. At time of discharge her medical care will return to her primary care provider, Dr. Sadler 12/15/16 Fall prevention interventions discussed with patient, and fall safety checklist from the CDC was given to the patient. Acute blood loss anemia: Asymptomatic. Continue to monitor. Blood sugars are under fairly good control. She has a history of prediabetes and is not on any antiglycemic medication. [facility] records were reviewed. Last hemoglobin A1c was 6.1% on 12/26/15. We'll repeat hemoglobin A1c now. Continue Xarelto for anticoagulation. This can be discontinued on 12/31/16. Constipation has resolved. Continue scheduled Colace and MiraLAX. Repeat CBC and BMP on 12/17/16. 12/18/16: [place]. S/P Right Hip Fracture and Gait instability: * Continue to encourage participation in therapies for strengthening and rehabilitation. * Fall prevention interventions previously discussed with patient and fall safety checklist from the CDC was given to the patient. * Continue Xarelto for anticoagulation. This can be discontinued on 12/31/16. * Anticipate discharge in near future. Post-op anemia: * Continue to monitor closely for symptoms. * Will recheck CBC in AM to monitor blood counts. GERD with Hiatal hernia: * Continue Protonix and Carafate as directed. Hyperlipidemia: * Continue Lipitor as directed. Osteoarthritis: * Pain control per Dr. Leslie. Depression: * Continue Zoloft as directed and monitor closely for signs of worsening depression. Fatty Liver: * Continue to monitor. Prediabetes: * A1c on 12/15/16 was WNL at 5.7 - improved from A1c on 12/26/15 at 6.1. Blood sugars remain stable. Continue to monitor closely. Constipation-resolved. * Continue scheduled Colace and MiraLAX. Problems: (1) Postoperative anemia Status: Acute Assessment & Plan: Stable, resolved during admit. (2) S/P right hip fracture Status: Acute Assessment & Plan: ORIF successful. PT and OT worked with pt to increase stability and strength. She is stable to d/c and cont working with home health. (3) Gait instability Status: Acute Assessment & Plan: front wheeled walker for support. cont with PT and OT outpatient. DVT Prophylaxis: SCD'S Code Status Do Not Resuscitate Home Meds Active Scripts Rivaroxaban (Xarelto) 10 Mg Tablet, 1 TAB PO DAILY for 13 Days, #13 TAB Prov:EVELINA HANLEY APRN 12/19/16 Hydrocodone/Acetaminophen ([place] 5-325 Tablet) 5-325 Tablet, 1-2 TAB PO Q4H Y for PRN ORDERS, #30 TAB Prov:EVELINA HANLEY V SHREDDING MACHINE OPERATOR 12/19/16 Reported Medications Polyethylene Glycol 3350 (Miralax) 17 Gm Powd.pack, 1 PACKET PO BID, #30 PACKET 3 Refills 12/11/16 Docusate Sodium (Colace) 100 Mg Capsule, 1 CAP PO BID for STOOL SOFTENING, CAP 12/11/16 Atorvastatin Calcium (Lipitor) 10 Mg Tablet, 10 MG PO DAILY 05/26/15 Sucralfate (Carafate) 1 Gm Tablet, 1 G PO BID, TAB Take 1 tablet, by mouth, 4 times a day as needed. 05/26/15 Polyvinyl Alcohol/Povidone/Pf (Refresh Classic Eye Drops) 1 Each Droperette, 2 DROP BOTH EYES BID Y for PRN ORDERS, ML 05/09/15 Esomeprazole Mag Trihydrate (Nexium) 20 Mg Capsule, 1 TAB PO HS, TAB 01/03/15 Sertraline (Sertraline) 50 Mg Tablet, 50 MG PO DAILY, TAB 01/03/15 Face to Face Encounter I met with patient on the day of dismissal and discussed follow up appointments , medications, and safety plan. Discharge Disposition To prior living condition. Pt stable on d/c. Copies To 1: BRUCE SADLER MD,RANI Bowman MD Dec 19, 2016 15:49
[2016-12-19 15:55] VITALS: BP 124/56; PULSE 64; RESP 13; TEMP 98; O2SAT 92
--- NOTE | 2016-12-19 16:57 | NUR ---
[employer] FAXED PT'S RX FOR XARELTO TO [facility] CHOICE: [facility]. CO-PAY WILL BE $20.00. PT SAID SHE CAN AFFORD THIS AND WILL GET THIS FILLED AFTER BEING RELEASED TODAY. THIS WORKER ALSO SPOKE WITH ANNA MARIE, WHO WAS PRESENT IN ROOM. BOTH PT AND ANNA MARIE AGREEABLE AND EAGER FOR DC TODAY. THEY HAD NO QUESTIONS/NEEDS FOR THIS WORKER. ORDERS FOR HOME HEALTH FAXED TO [facility]. CALLED NUSRAT; SHE SAID SERVICES WILL BE OPENED TOMORROW.
--- NOTE | 2016-12-19 18:00 | NUR ---
Shift Summary Pt is in the dining room at this time. Ambulates well with assist of 1, FWW, and gait belt. Has reported pain to the Rt hip which she was given at 0844, 1300, and 1805 which was [place] 5/325 (2). Has been continent this shift, able to manage her own clothing and hygiene cares. Ate well for meals, did not need assist with her tray, ambulated to the dining room with assist of 1.
--- NOTE | 2016-12-19 18:45 | NUR ---
Discharge Pt was dismissed to home with significant other via wheelchair escorted by staff. She was given her discharge packet and instructions which includes her prescriptions. Escorted to the ER entrance.
== END 2016-12-19 18:45 | disposition home health service (06) | DRG 560 ==
PROVIDERS: ADMIT Family Medicine; ATTEND Family Medicine
PROC: F07Z9FZ Gait Training/Functional Ambulation Treatment using Assistive, Adaptive, Supportive or Protective Equipment (ICD-10-PCS; principal; 2016-12-11)
PROC: F07M6ZZ Therapeutic Exercise Treatment of Musculoskeletal System - Whole Body (ICD-10-PCS; 2016-12-11)
PROC: F08Z4ZZ Home Management Treatment (ICD-10-PCS; 2016-12-11)
DX: S72.001D Fracture of unspecified part of neck of right femur, subsequent encounter for closed fracture with routine healing (principal); D62 Acute posthemorrhagic anemia; R26.89 Other abnormalities of gait and mobility; K21.9 Gastro-esophageal reflux disease without esophagitis; E78.5 Hyperlipidemia, unspecified; F32.9 Major depressive disorder, single episode, unspecified; H26.9 Unspecified cataract; E55.9 Vitamin D deficiency, unspecified; Z66 Do not resuscitate; W19.XXXD Unspecified fall, subsequent encounter; K44.9 Diaphragmatic hernia without obstruction or gangrene
CPT/HCPCS: 36415; 80048; 82607; 82948; 83036; 85025; 90732